=== PATIENT | female | born 1950 | race Caucasian/White ===

== ENCOUNTER 2019-08-22 15:37 | Emergency (ER) | payer MEDICARE, SELFPAY ==
--- NOTE | ~2019-08-22 | US_ITS ---
EXAMINATION: US right upper quadrant EXAM DATE: 08/22/2019 16:25 INDICATION: Right flank pain, right upper quadrant pain. TECHNIQUE: Multiple grayscale and Doppler images of the abdomen right upper quadrant were obtained (b y a technologist who performed the scan) and subsequently reviewed. Comparison is made to prior exami nation from 02/21/2019. FINDINGS: The pancreatic head and body are normal in appearance. The pancreatic tail is not visualized. There is echogenic liver parenchyma, hepatic steatosis. There are no focal liver lesions identified. Th ere is no evidence of intrahepatic biliary duct dilation. Portal venous flow was seen in the hepatop edal, normal direction and has normal Doppler waveform. No right-sided hydronephrosis. Common bile duct measures 5 mm, which is normal. The gallbladder wall is normal in thickness, with ex pected amount of distention. No sonographic evidence of pericholecystic fluid. There is no cholelit hiases. Technologist performing exam reports patient did not demonstrate sonographic Mccarthy's sign. Please note that this sign is less reliable in patients who have received pain medication. IMPRESSION: 1. Hepatic steatosis. 2. No right hydronephrosis. Reviewed, dictated and finalized at location A.
--- NOTE | ~2019-08-22 | CT_ITS ---
EXAMINATION: CT abdomen pelvis wo con EXAM DATE: 08/22/2019 18:14 INDICATION: Right flank pain. TECHNIQUE: Spiral CT of the abdomen and pelvis was performed without contrast. Axial, coronal and sag ittal images were reviewed. The dose-length product (DLP) for this examination was 1040.36 mGy-cm. The exposure was tailored according to patient size (auto mA exposure control), and iterative reconst ruction (ASIR) was used as additional dose reduction technique. There is no prior study for comparis on. FINDINGS: There are 4 right-sided calyceal stones largest measuring 4 mm. No ureteral stones or obstr uctive nephropathy. The uterus is unremarkable. The bladder is unremarkable. The liver, spleen, a drenal glands and pancreas are unremarkable. Gallbladder is unremarkable. No biliary obstruction. There is no retroperitoneal or pelvic lymphadenopathy. There is mild scattered arteriosclerotic dis ease. The appendix is normal. The stomach and small bowel are unremarkable. There is expected amount of c olonic stool. No free intraperitoneal gas. The heart is normal in size. There are no pericardial or pleural effusions. The lung bases are unremarkable. There are no osteoblastic or osteolytic les ions identified. Small umbilical fat-containing hernia. IMPRESSION: 1. Right nephrolithiasis. No obstructive nephropathy. 2. Small umbilical hernia. Reviewed, dictated and finalized at location A.
--- NOTE | 2019-08-22 16:03 | ED.BACK ---
HPI - Back Pain/Injury General Chief Complaint: Abdominal Pain Stated Complaint: R FLANK PAIN X4D Time Seen by Provider: 08/22/19 15:55 Source: patient Mode of arrival: ambulatory Limitations: no limitations History of Present Illness HPI Narrative: Pt is a 68 y/o female who presents to the ED with c/o rt sided back pain that started 4 days ago. Her back pain is aggravated with movement. She states that her pain feels similar to when she had a kidney stone in the past. Pt reports associated RUQ pain, epigastric pain, and nausea. She notes that she ate some toast at 1230PM. Pt denies fever, vomiting, or hematuria. She took Naproxen with no relief. MD elicited complaint: back pain Pertinent past history: kidney stones Onset (ago): day(s) (4) Location: right flank Exacerbating factors: movement Relieving factors: none Associated symptoms: abdominal pain (RUQ and epigastric) and other (nausea) Treatments prior to arrival: other (Naproxen) Related Data Home Medications Medication Instructions Recorded Confirmed amitriptyline-chlordiazepoxide 1 - 2 tablet PO .QHS tablet 04/08/19 12.5 mg-5 mg tablet atenolol 50 mg tablet 50 mg PO DAILY 04/08/19 fluticasone propionate 50 1 - 2 spray NASAL DAILY PRN ml 04/08/19 mcg/actuation nasal spray,suspension ketoconazole 2 % topical cream 1 applic TOPICAL BID 04/08/19 levothyroxine 75 mcg tablet 75 mcg PO DAILY 04/08/19 metformin 500 mg tablet,extended 500 mg PO BID 04/08/19 release 24 hr nystatin 100,000 unit/gram topical 1 applic TOPICAL BID 04/08/19 powder omeprazole 20 mg capsule,delayed 20 mg PO DAILY 04/08/19 release triamcinolone acetonide 0.1 % 1 applic TOPICAL QID 04/08/19 topical cream Allergies Allergy/AdvReac Type Severity Reaction Status Date / Time bacitracin Allergy Unknown rash Verified 08/22/19 16:52 codeine Allergy Unknown Dizziness Verified 08/22/19 16:52 doxycycline Allergy Unknown Nausea Verified 08/22/19 16:52 escitalopram Allergy Unknown headaches, Verified 08/22/19 16:52 dizziness ezetimibe Allergy Unknown hot flashes Verified 08/22/19 16:52 fluoxetine Allergy Unknown Anxious Verified 08/22/19 16:52 guaifenesin [Entex T] Allergy Unknown Anxious Verified 08/22/19 16:52 mirtazapine Allergy Unknown Pt does Verified 08/22/19 16:52 not remember reaction polymyxin B Allergy Unknown rash Verified 08/22/19 16:52 pseudoephedrine [Entex T] Allergy Unknown Anxious Verified 08/22/19 16:52 simvastatin Allergy Unknown myalgia Verified 04/08/19 14:39 suvorexant [Belsomra] Allergy Unknown myalgias Verified 04/08/19 14:39 hydrocodone AdvReac Mild GI UPSET- Unverified 04/08/19 14:39 VICODIN Review of Systems Review of Systems: All systems reviewed & are unremarkable except as noted in HPI and below Constitutional: Constitutional: Denies fever(s) Gastrointestinal: Gastrointestinal: Reports abdominal pain (epigastric and RUQ), Reports nausea and Denies vomiting Genitourinary: Genitourinary: Denies hematuria Musculoskeletal: Musculoskeletal: Reports back pain (rt) PMFSH Past Medical History Medical History (Updated 08/23/19 @ 00:00 by Shelby Harp) Arthritis Broken shoulder Chronic fatigue syndrome Chronic tension-type headache, not intractable Disorder of carbohydrate metabolism, unspecified Dysplastic nevus Essential (primary) hypertension Fibromyalgia Irritable bowel syndrome without diarrhea Kidney stones Major depressive disorder, recurrent, moderate Mixed hyperlipidemia MVP (mitral valve prolapse) Peripheral neuropathy TTS (tarsal tunnel syndrome) Type 2 diabetes mellitus with complication, without long-term current use of insulin Surgical History Surgical History (Updated 08/22/19 @ 16:12 by Yaritza Cordero) H/O arthroscopy of shoulder (~1994) H/O arthroscopy of shoulder (~1998) H/O section (~1988) H/O tubal ligation History of bilateral tubal ligation History of bladder surgery (~1994) H
[2019-08-22 16:05] VITALS: BP 171/40; PULSE 66; RESP 18; TEMP 37; O2SAT 97
[2019-08-22 16:51] LABS: Basophils Percent Auto 0.4 % (0.2-1.2); Eosinophils Absolute Auto 0.1 K/mm3 (0-0.3); Eosinophils Percent Auto 1.3 % (0-4.4); Immature Granulocyte Absolute 0.03 K/mm3 (0.00-0.031); Immature Granulocyte Percent A 0.7 % (0-0.5); Lymphocytes Absolute Auto 1.57 K/mm3 (0.9-3.2); Lymphocytes Percent Auto 34.5 % (18.3-44.2); Mean Corpuscular HGB Conc 31.8 g/dl (32-36); Mean Corpuscular Hemoglobin 28.6 pg (26-34); Mean Platelet Volume 11.9 fl (7.4-10.4); Monocytes Absolute Auto 0.6 K/mm3 (0.1-0.6); Monocytes Percent Auto 14.1 % (2.6-8.5); Neutrophils Absolute Auto 2.2 K/mm3 (1.3-6.7); Platelet Count Result 212 k/mm3 (150-375); Red Blood Count 4.89 M/mm3 (4.2-5.4); Red Cell Distribution Width 14.2 % (11.5-14.5); White Blood Count 4.6 K/mm3 (4.5-10.0)
[2019-08-22 16:57] LABS: Add Urine Microscopic? YES; Appearance Urine Clear (Clear); Bilirubin Urine Negative (Negative); Blood Urine Negative (Negative); Color Urine Straw (Yellow); Glucose Urine UA Negative (Negative); Ketones Urine Negative (Negative); Leukocyte Esterase Ur Trace LEU/UL (Negative); Nitrate Urine Negative (Negative); Protein Urine Negative (Negative); RBC Urine 0-2 /hpf (0-2); Squamous Epithelial Cell Urine Occasional /hpf (Few); Urobilinogen Urine Negative mg/dL (<2.0); WBC Urine 0-3 /hpf
[2019-08-22 17:06] LABS: Alanine Aminotransferase 43 U/L (4-35); Albumin Level 4.4 g/dL (3.5-5.1); Alkaline Phosphatase 133 U/L (38-126); Aspartate Amino Transferase 43 U/L (14-36); Bilirubin,Total 0.3 mg/dL (0.2-1.3); Blood Urea Nitrogen 14 mg/dL (7-17); Calcium 8.9 mg/dL (8.4-10.2); Carbon Dioxide 29 mmol/L (22-30); Chloride 102 mmol/L (98-107); Estimated CRCL calculation 67 ml/min; Estimated Glomerular Filt Rate > 60; Glucose 97 mg/dL (65-105); Lipase 44 U/L (23-300); Potassium 4.3 mmol/L (3.4-5.0); Sodium 137 mmol/L (137-145)
[2019-08-22] MEDS: DICYCLOMINE HCL INJ 20 MG/2 ML VIAL IM (17:23)
[2019-08-22 17:30] VITALS: BP 136/64; PULSE 89; RESP 16; O2SAT 97
== END 2019-08-22 19:45 | disposition home or self-care (01) ==
PROVIDERS: Emergency Provider Emergency Medicine; PCP Family Medicine
DX: R10.11 Right upper quadrant pain (principal); E11.42 Type 2 diabetes mellitus with diabetic polyneuropathy; M19.90 Unspecified osteoarthritis, unspecified site; R53.82 Chronic fatigue, unspecified; I10 Essential (primary) hypertension; M79.7 Fibromyalgia; K58.9 Irritable bowel syndrome, unspecified; Z87.442 Personal history of urinary calculi; E78.2 Mixed hyperlipidemia; I34.1 Nonrheumatic mitral (valve) prolapse; K76.0 Fatty (change of) liver, not elsewhere classified; Z79.4 Long term (current) use of insulin
CPT/HCPCS: 36415; 74176; 76705; 80053; 81001; 83690; 85025; 96372; 99284; J0500; J1885

== ENCOUNTER 2020-01-02 15:38 | Outpatient (CLI) | payer MEDICARE, SELFPAY ==
--- NOTE | ~2020-01-02 | MM_ITS ---
EXAMINATION: MM screening mary BI w maryam HISTORY: Screening TECHNIQUE: Craniocaudal and mediolateral oblique 3-D tomosynthesis images were obtained and synthetic 2-D images were generated. CAD analysis was submitted and interpreted. COMPARISON: Comparison to multiple prior studies sequentially, with oldest reviewed study dated 10/14. BREAST PARENCHYMAL COMPOSITION: There are scattered areas of fibroglandular density. FINDINGS: There is no evidence of suspicious mass, calcification, or architectural distortion to sugg est malignancy in either breast. There has been no suspicious interval change. IMPRESSION: 1. No mammographic evidence of malignancy. 2. Recommend routine screening mammography in one year. BI-RADS Category 1: Negative Reviewed, dictated and finalized at location A.
== END 2020-01-02 15:39 | disposition home or self-care (01) ==
LOC: ANHIMG 15:42
PROVIDERS: PCP Family Medicine; Visit Provider Family Medicine
DX: Z12.31 Encounter for screening mammogram for malignant neoplasm of breast (principal)
CPT/HCPCS: 77063; 77067

== ENCOUNTER 2020-03-14 03:46 | Outpatient (CLI) | payer MEDICARE, SELFPAY ==
[2020-03-14 19:05] LABS: SARS-CoV-2 RNA PCR Negative
== END 2020-03-14 03:47 | disposition home or self-care (01) ==
LOC: ANHCOVIDDT 03:46
PROVIDERS: PCP Family Medicine; Visit Provider Internal Medicine Critical Care Medicine
DX: Z01.812 Encounter for preprocedural laboratory examination (principal); Z20.828 Contact with and (suspected) exposure to other viral communicable diseases
CPT/HCPCS: 87635; C9803; U0003

== ENCOUNTER 2020-03-16 14:36 | Outpatient (CLI) | payer MEDICARE, SELFPAY ==
--- NOTE | 2020-04-11 10:58 | WPDSLEEPSTUD ---
Sleep Study Date of Study: 03/16/20 Ordering Provider: Gay Henson MD Interpreting Physician: Nicole Quinn MD Sleep Study Type: Split Polysomnogram Height: 1.57 m Weight: 90.718 kg Body Mass Index: 36.6 Neck Circumference: 40.64 cm [place]: 3 Reason for Sleep Study Fatigue, has a diagnosis of CONSTANCE but has not been able to have a CPAP titration. Her initial study was 04/19/2017 with an AHI of 8, looud snoring and multiple desaturations. Sleep History Jeanette Modi is a 69 yo female who has a history of obstructive sleep apnea, and has not been able to have a CPAP titration until now. She has headaches, hypertension, diabtese and depression. She had a sleep study in 2017 however did not have a CPAP titration afterwards. she occasionally snores but says it is never allowed enough that others complain about it. She frequently awakens at night with heartburn, belching for coughing. She does not awaken from sleep feeling short of breath. She constantly has trouble sleeping if she has a cold. She does not wake up gasping for breath at night or have breathing problems at night observed by others. She constantly sweats excessively at night and occasionally notices her heart pounding or beating irregularly at night. She never falls asleep in the day, never falls asleep involuntarily or while driving. She does not have loss of muscle tone was strong emotion. She does not have daytime difficulties due to excessive sleepiness. She never feels paralyzed on waking or falling asleep. She constantly has vivid dreamlike scenes upon awakening or falling asleep. She never is afraid to go to sleep. She never has nightmares. She constantly remembers her dreams. She does not have racing thoughts. She denies feelings of sadness and depression. She occasionally has anxiety. She never has muscular tension. She does not notice part of her body jerking. She does not kick at night, have crawling and aching feelings in the legs at night or have leg pain at night. She denies morning jaw pain. She constantly grinds her teeth during sleep. She frequently is bothered by pain during the day, is awakened by pain at night and wakes up feeling stiff in the morning was sore achy muscles and pain in the neck and spine joints. She has fatigue and headaches. Her normal bedtime is midnight taking 10 minutes to 20 minutes to fall asleep. She typically wakes twice at night to go to the bathroom. When she wakes during the night she stays awake for 1 hour. She wakes in the morning at 10:00 a.m.. Weekend schedule is the same. She is too tired and fatigued to enjoy her normal social activities. She does take naps in the afternoon. A short nap is not refreshing. She feels better in the afternoon compared to mornings. Habits: She never smoked tobacco. No mention of caffeine, alcohol or recreational drugs. [facility] Past Medical History Medical History (Updated 04/11/20 @ 11:50 by Nicole Quinn MD) Arthritis Broken shoulder Chronic fatigue syndrome Chronic tension-type headache, not intractable Disorder of carbohydrate metabolism, unspecified Dysplastic nevus Essential (primary) hypertension Fibromyalgia Irritable bowel syndrome without diarrhea Kidney stones Major depressive disorder, recurrent, moderate Mixed hyperlipidemia MVP (mitral valve prolapse) Peripheral neuropathy TTS (tarsal tunnel syndrome) Type 2 diabetes mellitus with complication, without long-term current use of insulin Surgical History Surgical History H/O arthroscopy of shoulder (~1994) H/O arthroscopy of shoulder (~1998) H/O section (~1988) H/O tubal ligation History of bilateral tubal ligation History of bladder surgery (~1994) History of bladder suspension procedure History of foot surgery (~2000) History of sinus surgery (~1996) Family History Family History Mother
[2020-04-11 12:28] VITALS: BMI 36.6
== END 2020-03-16 14:37 | disposition home or self-care (01) ==
LOC: ANHCSM 04-24 14:36
PROVIDERS: PCP Family Medicine; Visit Provider Family Medicine
DX: G47.33 Obstructive sleep apnea (adult) (pediatric) (principal)
CPT/HCPCS: 95811

== ENCOUNTER 2020-08-07 14:36 | Outpatient (CLI) | payer MEDICARE, SELFPAY ==
--- NOTE | ~2020-08-07 | MR_ITS ---
EXAMINATION: MR brain/brain stem wo/w con EXAM DATE: 08/07/2020 16:04 INDICATION: R51.9 - Headache, unspecified. TECHNIQUE: Magnetic resonance imaging (MRI) of the brain/brain stem obtained without contrast. Sagit ann T1, axial diffusion, gradient echo (T2*), T1, T2, FLAIR sequences obtained. Patient was then inj ected with 18 cc intravenous Multihance contrast. Axial and coronal postcontrast T1 weighted sequence s obtained. There is no prior study for comparison. FINDINGS: There are no areas of restricted diffusion to suggest acute infarction. There is no acute hemorrhage seen on the T2*, a hemosiderin sensitive sequence. There is mild microangiopathy. Mild eth moid mucoperiosteal thickening. No intraparenchymal brain mass. The ventricles are normal in size. T here are no extra-axial collections. Flow voids are seen in the cerebral arteries on the T2-weighted sequences consistent with their expected patency. The orbits are unremarkable. Soft tissue is unre markable. There are no areas of abnormal enhancement on the postcontrast images. IMPRESSION: 1. No acute intracranial findings. 2. Mild microangiopathy. Reviewed, dictated and finalized at location A.
[2020-08-07 15:41] LABS: Estimated Glomerular Filt Rate 55
== END 2020-08-07 14:37 | disposition home or self-care (01) ==
PROVIDERS: PCP Family Medicine; Visit Provider Physician Assistant
DX: R51.9 Headache, unspecified (principal); I67.9 Cerebrovascular disease, unspecified
CPT/HCPCS: 70553; A9577

== ENCOUNTER 2020-09-24 13:18 | Outpatient (CLI) | payer MEDICARE, SELFPAY ==
--- NOTE | ~2020-09-24 | XR_ITS ---
EXAMINATION: XR shoulder RT min 2V, XR humerus RT DATE: 09/24/2020 13:42 INDICATION: Right shoulder and upper arm pain and limited range of motion TECHNIQUE: 1. AP internally and externally rotated, AP oblique externally rotated and transscapular Y views of t he affected shoulder were obtained. 2. AP and lateral views of the right upper arm were obtained. COMPARISON: None FINDINGS: Normal alignment. No fracture. Mild acromioclavicular osteoarthritis. Right glenohumeral and acromio clavicular joint spaces are relatively preserved. Tiny olecranon spur. Soft tissues are unremarkable. Visualized portions of the right lung are clear. IMPRESSION: Mild acromioclavicular osteoarthritis. No acute osseous abnormality at the right shoulder or upper ar m. Reviewed, dictated and finalized at location A. IMPRESSION: Mild acromioclavicular osteoarthritis. No acute osseous abnormality at the [place] shoulder or upper arm.
== END 2020-09-24 13:19 | disposition home or self-care (01) ==
PROVIDERS: PCP Family Medicine; Visit Provider Physician Assistant Medical
DX: M25.511 Pain in right shoulder (principal); M89.8X2 Other specified disorders of bone, upper arm; M19.011 Primary osteoarthritis, right shoulder
CPT/HCPCS: 73030; 73060

== ENCOUNTER 2020-11-27 00:30 | Day surgery (SDC) | payer MEDICARE, SELFPAY ==
[2020-11-16 15:19] VITALS: BMI 37.9
[2020-11-27 06:49] VITALS: BP 151/77; PULSE 62; RESP 18; TEMP 36.1; O2SAT 95
[2020-11-27] MEDS: LACTATED RINGERS 1,000 ML 150 ML IV CONT (06:58)
[2020-11-27 07:00] LABS: Glucose Point of Care 138 mg/dl (65-105)
--- NOTE | 2020-11-27 07:22 | WPDANESEPPF ---
Anes - Initial Pre Proc Eval Procedure: Operation Date: 11/27/20 08:00 Proposed Procedures p Screening Colonoscopy - Rodríguez Lyles MD Date/Time: 11/27/20 07:22 Surgeon: Rodríguez Lyles MD Pre Op Diagnosis: neoplasm screening Patient Data Age: 70 Gender: F Height: 1.55 m Weight: 88.3 kg Last Vital Signs Temp 97.0 F L 11/27/20 06:49 Pulse 62 11/27/20 06:49 Resp 18 11/27/20 06:49 BP 151/77 H 11/27/20 06:49 Pulse Ox 95 11/27/20 06:49 Allergies Allergy/AdvReac Type Severity Reaction Status Date / Time simvastatin Allergy Intermediate myalgia Verified 11/27/20 06:47 suvorexant [Belsomra] Allergy Intermediate myalgias Verified 11/27/20 06:47 bacitracin Allergy Mild rash Verified 11/27/20 06:47 mirtazapine Allergy Unknown Pt does Verified 11/27/20 06:47 not remember reaction codeine AdvReac Mild Dizziness Verified 11/27/20 06:47 doxycycline AdvReac Mild Nausea Verified 11/27/20 06:47 escitalopram AdvReac Mild headaches, Verified 11/27/20 06:47 dizziness ezetimibe AdvReac Mild hot flashes Verified 11/27/20 06:47 fluoxetine AdvReac Mild Anxious Verified 11/27/20 06:47 guaifenesin [Entex T] AdvReac Mild Anxious Verified 11/27/20 06:47 hydrocodone AdvReac Mild GI UPSET- Verified 11/27/20 06:47 VICODIN polymyxin B AdvReac Mild rash Verified 11/27/20 06:47 pseudoephedrine [Entex T] AdvReac Mild Anxious Verified 11/27/20 06:47 Home Medications Medication Instructions Recorded Confirmed Type metformin 500 mg tablet,extended 500 mg PO BID #180 tablet 10/12/19 11/16/20 Rx release 24 hr triamterene 37.5 0.5 tablet PO QAM #90 tablet 04/09/20 11/16/20 Rx mg-hydrochlorothiazide 25 mg tablet zolpidem 10 mg tablet 10 mg PO .QHS #90 tablet 06/21/20 11/16/20 Rx atenolol 50 mg PO HS 11/16/20 11/16/20 History cholecalciferol (vitamin D3) 2,000 unit PO DAILY 11/16/20 11/16/20 History [Vitamin D3] gabapentin 1,200 mg PO BID 11/16/20 11/16/20 History levothyroxine 75 mcg PO HS 11/16/20 11/16/20 History ervidyjxgdlf-mqz-parg-FA-vit K 1 tablet PO DAILY 11/16/20 11/16/20 History [Adults Multivitamin] paroxetine HCl 30 mg PO DAILY 11/16/20 11/16/20 History rosuvastatin [Crestor] 10 mg PO HS 11/16/20 11/16/20 History Laboratory Tests 11/27/20 06:56 POC Capillary Glucose 138 mg/dl H mg/dl (65-105) Patient hx anesthesia problems: none Family hx anesthesia problems: none PMFSH Past Medical History Medical History Arthritis Broken shoulder Chronic fatigue syndrome Chronic tension-type headache, not intractable Disorder of carbohydrate metabolism, unspecified Dysplastic nevus Essential (primary) hypertension Fibromyalgia Irritable bowel syndrome without diarrhea Kidney stones Major depressive disorder, recurrent, moderate Mixed hyperlipidemia MVP (mitral valve prolapse) Peripheral neuropathy TTS (tarsal tunnel syndrome) Type 2 diabetes mellitus with complication, without long-term current use of insulin Surgical History Surgical History H/O arthroscopy of shoulder (~1994) H/O arthroscopy of shoulder (~1998) H/O section (~1988) H/O tubal ligation History of bilateral tubal ligation History of bladder surgery (~1994) History of bladder suspension procedure History of foot surgery (~2000) History of sinus surgery (~1996) Family History Family History Mother Family history of suicide Patient's mother is Father Family history of throat cancer Patient's father is , Onset Age: 58 Sibling Family history of coronary artery disease Other Family history of alcoholism Family history of cardiovascular disease Family history of elevated blood lipids Family history of mental disorder No family history of allergies Social History So
--- NOTE | 2020-11-27 08:05 | WPDGICN ---
Assessment and Plan Assessment and plan (1) Encounter for screening colonoscopy: Code(s): Z12.11 - Encounter for screening for malignant neoplasm of colon Status: Acute Assessment and Plan: Patient presents today for screening colonoscopy. Further recommendations will be given after endoscopy. GI Consult Note Consult date/time: 11/27/20 08:05 HPI: Jeanette Modi is a 70 year old female presents for neoplasia screening. Patient states that her current weight appetite bowel movements are normal. She denies abdominal pain. She has had no bleeding. Her family history is noncontributory. Patient presents today for screening follow-up colonoscopy. Her last exam was in 2004. She reports no recent GI issues. She has had no bleeding pain or change in bowel habits. Review of Systems Review of Systems: All systems reviewed & are unremarkable except as noted in HPI and below PMFSH Past Medical History Medical History (Updated 11/27/20 @ 08:06 by Rodríguez Lyles MD) Arthritis Broken shoulder Chronic fatigue syndrome Chronic tension-type headache, not intractable Disorder of carbohydrate metabolism, unspecified Dysplastic nevus Essential (primary) hypertension Fibromyalgia Irritable bowel syndrome without diarrhea Kidney stones Major depressive disorder, recurrent, moderate Mixed hyperlipidemia MVP (mitral valve prolapse) Peripheral neuropathy TTS (tarsal tunnel syndrome) Type 2 diabetes mellitus with complication, without long-term current use of insulin Surgical History Surgical History (Reviewed 11/02/20 @ 14:27 by Olga Davalos [facility]) H/O arthroscopy of shoulder (~1994) H/O arthroscopy of shoulder (~1998) H/O section (~1988) H/O tubal ligation History of bilateral tubal ligation History of bladder surgery (~1994) History of bladder suspension procedure History of foot surgery (~2000) History of sinus surgery (~1996) Family History Family History (Reviewed 11/02/20 @ 14:27 by Olga Davalos [facility]) Mother Family history of suicide Patient's mother is Father Family history of throat cancer Patient's father is , Onset Age: 58 Sibling Family history of coronary artery disease Other Family history of alcoholism Family history of cardiovascular disease Family history of elevated blood lipids Family history of mental disorder No family history of allergies Social History Social History (Reviewed 11/02/20 @ 14:27 by Olga Davalos [facility]) Smoking status: Never smoker Alcohol intake: current Substance use: never Substance use type: does not use Living arrangements: with family Gender identity (if verbalized by the patient): Female Spiritual care concerns: No Meds Home Medications and Allergies Home Medications Medication Instructions Recorded Confirmed Type metformin 500 mg tablet,extended 500 mg PO BID #180 tablet 10/12/19 11/16/20 Rx release 24 hr triamterene 37.5 0.5 tablet PO QAM #90 tablet 04/09/20 11/16/20 Rx mg-hydrochlorothiazide 25 mg tablet zolpidem 10 mg tablet 10 mg PO .QHS #90 tablet 06/21/20 11/16/20 Rx atenolol 50 mg PO HS 11/16/20 11/16/20 History cholecalciferol (vitamin D3) 2,000 unit PO DAILY 11/16/20 11/16/20 History [Vitamin D3] gabapentin 1,200 mg PO BID 11/16/20 11/16/20 History levothyroxine 75 mcg PO HS 11/16/20 11/16/20 History izkjdsargfcz-eku-sbus-FA-vit K 1 tablet PO DAILY 11/16/20 11/16/20 History [Adults Multivitamin] paroxetine HCl 30 mg PO DAILY 11/16/20 11/16/20 History rosuvastatin [Crestor] 10 mg PO HS 11/16/20 11/16/20 History Allergies Allergy/AdvReac Type Severity Reaction Status Date / Time simvastatin Allergy Intermediate myalgia Verified 11/27/20 06:47 suvorexant [Belsomra] Allergy Intermediate myalgias Verified 11/27/20 06:47 bacitracin Allergy Mild rash Verified 11/27/20 06:47 mirtazapine Allergy Unknown Pt does Verified 11/27/20 06:47
[2020-11-27] MEDS: SIMETHICONE ORAL SUSPENSION 20 MG/0.3 ML 30 ML BOTTLE 0.6 ML IRRIGATION (08:17)
[2020-11-27 08:28] VITALS: BP 124/64; PULSE 68; RESP 21; O2SAT 97
[2020-11-27 08:38] VITALS: BP 115/62; PULSE 58; RESP 18; O2SAT 96
[2020-11-27 08:48] VITALS: BP 130/69; PULSE 63; RESP 20; O2SAT 97
== END 2020-11-27 09:02 | disposition home or self-care (01) ==
PROVIDERS: PCP Family Medicine; Visit Provider Internal Medicine Gastroenterology
PROC: 0DJD8ZZ Inspection of Lower Intestinal Tract, Via Natural or Artificial Opening Endoscopic (ICD-10-PCS; CPT 45378; principal; 2020-11-27 08:00)
DX: Z12.11 Encounter for screening for malignant neoplasm of colon (principal); K64.8 Other hemorrhoids; Z79.84 Long term (current) use of oral hypoglycemic drugs; E03.9 Hypothyroidism, unspecified; M19.90 Unspecified osteoarthritis, unspecified site; I10 Essential (primary) hypertension; M79.7 Fibromyalgia; F32.9 Major depressive disorder, single episode, unspecified; E78.5 Hyperlipidemia, unspecified; I34.1 Nonrheumatic mitral (valve) prolapse; E11.40 Type 2 diabetes mellitus with diabetic neuropathy, unspecified; E66.9 Obesity, unspecified; Z68.36 Body mass index [BMI] 36.0-36.9, adult; K58.9 Irritable bowel syndrome, unspecified
CPT/HCPCS: G0121; 82948; J2704; J7120

== ENCOUNTER 2021-02-05 14:44 | Outpatient (CLI) | payer MEDICARE, SELFPAY ==
--- NOTE | ~2021-02-05 | MM_ITS ---
EXAMINATION: MM screening mary BI w maryam HISTORY: Screening TECHNIQUE: Craniocaudal and mediolateral oblique 3-D tomosynthesis images were obtained and synthetic 2-D images were generated. CAD analysis was submitted and interpreted. COMPARISON: Comparison to multiple prior studies sequentially, with oldest reviewed study dated 07/05. BREAST PARENCHYMAL COMPOSITION: Breast composed of scattered areas of fibroglandular density FINDINGS: There is no evidence of suspicious mass, calcification, or architectural distortion to sugg est malignancy in either breast. There has been no suspicious interval change. IMPRESSION: 1. No mammographic evidence of malignancy. 2. Recommend routine screening mammography in one year. BI-RADS Category 1: Negative Reviewed, dictated and finalized at location A.
== END 2021-02-05 14:45 | disposition home or self-care (01) ==
LOC: ANHIMG 14:47
PROVIDERS: PCP Family Medicine; Visit Provider Family Medicine
DX: Z12.31 Encounter for screening mammogram for malignant neoplasm of breast (principal)
CPT/HCPCS: 77063; 77067

== ENCOUNTER 2022-05-13 14:59 | Outpatient (CLI) | payer MEDICARE, SELFPAY ==
--- NOTE | ~2022-05-13 | MM_ITS ---
EXAMINATION: MM screening mary BI w maryam HISTORY: Screening TECHNIQUE: Craniocaudal and mediolateral oblique 3-D tomosynthesis images were obtained and synthetic 2-D images were generated. CAD analysis was submitted and interpreted. COMPARISON: Comparison to multiple prior studies sequentially, with oldest reviewed study dated 07/05. BREAST PARENCHYMAL COMPOSITION: There are scattered areas of fibroglandular density. FINDINGS: There is no evidence of suspicious mass, calcification, or architectural distortion to sugg est malignancy in either breast. There has been no suspicious interval change. IMPRESSION: 1. No mammographic evidence of malignancy. 2. Recommend routine screening mammography in one year. BI-RADS Category 1: Negative Reviewed, dictated and finalized at location A. 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
== END 2022-05-13 15:00 | disposition home or self-care (01) ==
LOC: ANHIMG 15:00
PROVIDERS: PCP Family Medicine; Visit Provider Family Medicine
DX: Z12.31 Encounter for screening mammogram for malignant neoplasm of breast (principal)
CPT/HCPCS: 77063; 77067

== ENCOUNTER → 2022-05-28 09:10 | Outpatient (CLI) | payer MEDICARE, SELFPAY ==
--- NOTE | ~2022-05-28 | US_ITS ---
Abdominal Sonogram: Real-time sonographic imaging of the abdomen was performed. Clinical History: Right upper quadrant pain Findings: The liver appears echogenic, with no evidence of mass lesion or bile duct dilatation. Main portal vein demonstrates normal direction of flow. The spleen is normal in size without evidence of focal lesion. The gallbladder is well distended, and appears normal with no evidence of gallstone or wall thickening. The common bile duct measures 6 mm. The visualized pancreas, aorta, and IVC are un remarkable. The right kidney measures 10.8 cm in length and the left kidney measures 10.6 cm. There is no hydronephrosis or renal calculus. Impression: Diffuse fatty infiltration of the liver. Reviewed, dictated and finalized at location M. 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
== END ==
PROVIDERS: PCP Nurse Practitioner; Visit Provider Nurse Practitioner
DX: R10.11 Right upper quadrant pain (principal); K76.0 Fatty (change of) liver, not elsewhere classified
CPT/HCPCS: 76700

== ENCOUNTER 2022-07-08 09:19 | Outpatient (CLI) | payer MEDICARE, SELFPAY ==
--- NOTE | ~2022-07-08 | NM_ITS ---
EXAMINATION: NM hepatobiliary wo pharm DATE: 07/08/2022 12:08 INDICATION: Right upper quadrant abdominal pain. COMPARISON: Ultrasound 05/28/2022 TECHNIQUE: 5.2 mCi Tc-99m mebrofenin (Choletec) was administered intravenously. Scintigraphic images of the abdomen were obtained for one hour. Then, the patient drank 8 oz Ensure, and imaging was cont inued for 60 minutes. FINDINGS: There is normal clearance of radiotracer from the blood pool. There is homogeneous tracer u ptake by the liver. Activity progresses to the bowel and gallbladder. Gallbladder ejection fraction (GBEF) was 57%. Note that with this technique, normal GBEF >= 33%. IMPRESSION: 1. Normal hepatobiliary scintigraphy. Reviewed, dictated and finalized at location A. 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
== END 2022-07-08 09:20 | disposition home or self-care (01) ==
PROVIDERS: PCP Family Medicine; Visit Provider Nurse Practitioner Family
DX: R10.11 Right upper quadrant pain (principal)
CPT/HCPCS: 78226; A9537

== ENCOUNTER 2023-10-12 10:31 | Outpatient (CLI) | payer MEDICARE, SELFPAY ==
--- NOTE | ~2023-10-12 | XR_ITS ---
Right Knee Technique: AP, lateral, and sunrise views were obtained. Clinical History: Pain Findings: No fracture or dislocation is seen. Osseous alignment is anatomic. Mild tricompartmental de generative spurring present. Soft tissues are unremarkable. No joint effusion is seen. Impression: Mild tricompartmental degenerative spurring. Reviewed, dictated and finalized at location . Impression: Mild tricompartmental degenerative spurring.
== END 2023-10-12 10:32 ==
PROVIDERS: PCP Family Medicine; Visit Provider Nurse Practitioner
DX: M25.761 Osteophyte, right knee (principal)
CPT/HCPCS: 73562

== ENCOUNTER 2023-11-07 13:25 | Emergency (ER) | payer MEDICARE, SELFPAY ==
--- NOTE | ~2023-11-07 | XR_ITS ---
XR hand LT min 3V Ordering provider: Sheri Madrid PA-C History: . fall last night, bruising, swelling, lac to 5th finger . Comparison: None. FINDINGS: BONES: Fracture of the proximal shaft of the proximal phalanx of the fifth finger is noted. Fracture of the proximal metaphysis of the fifth metacarpal bone is also noted. No significant displacement. JOINT SPACES: Osteoarthritic changes of the first carpometacarpal joint. SOFT TISSUES: Soft tissue swelling over the area of the fifth metacarpal bone. IMPRESSION: Undisplaced fracture of the proximal metaphysis of the fifth metacarpal bone and proximal metaphysis of the proximal phalanx of the fifth finger. Reviewed, dictated and finalized at location A. IMPRESSION: Undisplaced fracture of the proximal metaphysis of the fifth metacarpal bone an d proximal metaphysis of the proximal phalanx of the fifth finger.
--- NOTE | ~2023-11-07 | CT_ITS ---
CT facial & cervical spine wo Ordering provider: Sheri Madrid PA-C History: . head injury . Comparison: None. Technique: Thin slice axial CT of the facial bones was performed without contrast. Coronal and sagit ann reformatted images were also obtained. Radiation reduction technique utilized. DLP is 470.57 mGy FINDINGS: PARANASAL SINUSES: Bilateral sphenoid and posterior right ethmoid sinus disease. Thickening of the wa ll of the sphenoid sinuses suggestive of chronic sinusitis. BONES: No facial fracture including no nasal bone fracture. ORBITS AND SUPERFICIAL SOFT TISSUES: The optic globes and orbits are normal. Scalp hematoma is seen i n the left frontal scalp extending anterior to the left orbit. zVISUALIZED MASTOIDS: Well aerated. LIMITED VISUALIZED BRAIN PARENCHYMA: Normal. IMPRESSION: No facial fracture. CT facial & cervical spine wo Ordering provider: Sheri Madrid PA-C History: . head injury . Comparison: None. Technique: CT of the cervical spine was performed without contrast. Sagittal and coronal reformatted images were also obtained and reviewed. FINDINGS: VERTEBRAE: No subluxation or acute fracture. The occipital condyles are intact. DISC SPACES: Mild narrowing of the level of C6-C7. Multilevel facet joint disease. Multilevel uncover tebral joint osteoarthritic changes. PARASPINOUS SOFT TISSUES: Normal. IMPRESSION: No acute osseous abnormality cervical spine. Reviewed, dictated and finalized at location A. IMPRESSION: No facial fracture. CT facial & cervical spine wo Ordering provider: Sheri Madrid PA-C History: . head injury . Comparison: None. Technique: CT of the cervical spine was performed without contrast. Sagittal a nd coronal reformatted images were also obtained and reviewed. FINDINGS: VERTEBRAE: No subluxation or acute fracture. The occipital condyles are intact. DISC SPACES: Mild narrowing of the level of C6-C7. Multilevel facet joint disea se. Multilevel uncovertebral joint osteoarthritic changes. PARASPINOUS SOFT TISSUES: Normal.
--- NOTE | ~2023-11-07 | CT_ITS ---
CT brain wo con Ordering provider: Sheri Mardid PA-C History: 73 years Female with . head injury . Comparison: None. Technique: CT of the head without contrast. Radiation reduction technique utilized. DLP is 529.67 mGy FINDINGS: BRAIN PARENCHYMA AND CSF SPACES: No midline shift, mass effect or hemorrhage. The brain parenchyma a nd CSF spaces are otherwise normal. VISUALIZED PARANASAL SINUSES: Bilateral sphenoid and posterior right ethmoid sinus disease.z MASTOIDS: Well aerated. BONES: The bones appear intact. SOFT TISSUES: Visualized nasopharynx is normal. Left frontal scalp hematoma is noted. IMPRESSION: No acute intracranial findings. Large left Frontal scalp hematoma. Bilateral sphenoid and right posterior ethmoid sinus disease. Reviewed, dictated and finalized at location A.
--- NOTE | ~2023-11-07 | XR_ITS ---
XR elbow LT min 3V Ordering provider: Sheri Madrid PA-C History: . fall last night, abrasion posterior elbow . Comparison: None. FINDINGS: BONES: No acute fracture or dislocation. JOINT SPACES: Normal. SOFT TISSUES: Normal. No definite joint effusion. IMPRESSION: No acute osseous abnormality left elbow. Reviewed, dictated and finalized at location A.
[2023-11-07 13:44] VITALS: BP 171/69; PULSE 60; RESP 16; TEMP 36.8; O2SAT 97
--- NOTE | 2023-11-07 14:34 | ED.HEATRA ---
HPI - Head Injury General Chief complaint: Head Injury Stated complaint: fall, hit head Time Seen by Provider: 11/07/23 14:07 Source: patient Mode of arrival: ambulatory Limitations: no limitations History of Present Illness HPI Narrative: This is a 73 year old female that presents to the ER after a head injury last night. Reports she missed a step and fell down a couple of steps. Reports hitting her head. She did not lose consciousness. Reports contusion to the scalp, face, and left elbow and hand pain. Denies vision changes, vomiting, numbness or weakness. Related Data Home Medications Medication Instructions Recorded Confirmed multivit with minerals-iron 18 1 tablet PO DAILY 11/16/20 09/09/23 mg-folic ac 400 mcg-vit K 25 mcg tablet (Adults Multivitamin) melatonin 10 mg capsule 10 mg PO QHS 12/04/22 09/09/23 Allergies Allergy/AdvReac Type Severity Reaction Status Date / Time simvastatin Allergy Intermediate myalgia Verified 09/09/23 12:58 suvorexant [Belsomra] Allergy Intermediate myalgias Verified 09/09/23 12:58 bacitracin Allergy Mild rash Verified 09/09/23 12:58 mirtazapine Allergy Unknown Pt does Verified 09/09/23 12:58 not remember reaction codeine AdvReac Mild Dizziness Verified 09/09/23 12:58 doxycycline AdvReac Mild Nausea Verified 09/09/23 12:58 escitalopram AdvReac Mild headaches, Verified 09/09/23 12:58 dizziness ezetimibe AdvReac Mild hot flashes Verified 09/09/23 12:58 fluoxetine AdvReac Mild Anxious Verified 09/09/23 12:58 guaifenesin [Entex T] AdvReac Mild Anxious Verified 09/09/23 12:58 hydrocodone AdvReac Mild GI UPSET- Verified 09/09/23 12:58 VICODIN polymyxin B AdvReac Mild rash Verified 09/09/23 12:58 pseudoephedrine [Entex T] AdvReac Mild Anxious Verified 09/09/23 12:58 Review of Systems Review of Systems: CONSTITUTIONAL: Denies fever EYES: Denies visual changes GASTROINTESTINAL: Denies vomiting MUSCULOSKELETAL: Reports joint pain and myalgia. Denies back pain NEUROLOGIC: Reports headache. Denies numbness, or weakness. All systems reviewed & are unremarkable except as noted in HPI and below PMFSH Past Medical History Medical History Arthritis Broken shoulder Chronic fatigue syndrome Chronic tension-type headache, not intractable Disorder of carbohydrate metabolism, unspecified Dysplastic nevus Essential (primary) hypertension Fibromyalgia Irritable bowel syndrome without diarrhea Kidney stones Major depressive disorder, recurrent, moderate Mixed hyperlipidemia MVP (mitral valve prolapse) Peripheral neuropathy Post menopausal problems Tongue abnormality (~09/2022) growth removed by TTS (tarsal tunnel syndrome) Type 2 diabetes mellitus with complication, without long-term current use of insulin Surgical History Surgical History H/O arthroscopy of shoulder (~1994) H/O arthroscopy of shoulder (~1998) H/O section (~1988) H/O tubal ligation History of bilateral tubal ligation History of bladder surgery (~1994) History of bladder suspension procedure History of foot surgery (~2000) History of sinus surgery (~1996) Family History Family History Mother Family history of suicide Patient's mother is Father Family history of throat cancer Patient's father is , Onset Age: 58 Sibling Family history of coronary artery disease Alcoholism Depression Heart disease COPD (chronic obstructive pulmonary disease) Grandparent Alcoholism Cancer Diabetes mellitus Hypertension COPD (chronic obstructive pulmonary disease) Grandparent Cancer Other Family history of alcoholism Family history of cardiovascular disease Family history of elevated blood lipids Family history of mental disorder No family history of allergies
[2023-11-07] MEDS: TETANUS,DIPHTHERIA,AC PERTUSSIS ADULT (0.5 ML) BOOSTRIX IM (16:47)
== END 2023-11-07 17:00 | disposition home or self-care (01) ==
PROVIDERS: Emergency Provider Physician Assistant; PCP Family Medicine
DX: S00.03XA Contusion of scalp, initial encounter (principal); S62.347A Nondisplaced fracture of base of fifth metacarpal bone, left hand, initial encounter for closed fracture; S62.647A Nondisplaced fracture of proximal phalanx of left little finger, initial encounter for closed fracture; Z23 Encounter for immunization; I10 Essential (primary) hypertension; I34.1 Nonrheumatic mitral (valve) prolapse; K58.9 Irritable bowel syndrome, unspecified; E78.2 Mixed hyperlipidemia; E11.42 Type 2 diabetes mellitus with diabetic polyneuropathy; G93.32 Myalgic encephalomyelitis/chronic fatigue syndrome; M79.7 Fibromyalgia; M19.90 Unspecified osteoarthritis, unspecified site; Z87.442 Personal history of urinary calculi; Z79.84 Long term (current) use of oral hypoglycemic drugs; Z79.899 Other long term (current) drug therapy; J32.3 Chronic sphenoidal sinusitis; J32.2 Chronic ethmoidal sinusitis; W10.9XXA Fall (on) (from) unspecified stairs and steps, initial encounter
CPT/HCPCS: 29125; 70450; 70486; 72125; 73080; 73130; 90471; 90715; 99284; A4565

== ENCOUNTER 2023-12-14 15:05 | Outpatient (CLI) | payer MEDICARE, SELFPAY ==
--- NOTE | ~2023-12-14 | XR_ITS ---
XR hand LT min 3V Ordering provider: Susan Senior MD History: . S62.647A - Nondisplaced fracture of proximal phalanx of l... . Comparison: November 07, 2023 FINDINGS: BONES: Fracture in the proximal metaphysis of the proximal phalanx and proximal metaphysis of the fif th metacarpal bone of the fifth finger. JOINT SPACES: Osteoarthritic changes of the first carpometacarpal joint. Narrowing of the distal inte rphalangeal joints suggestive of osteoarthritic changes. SOFT TISSUES: Unremarkable. IMPRESSION: Fracture in the proximal metaphysis of the fifth metacarpal bone and proximal phalanx of the fifth fi nger. Osteoarthritic changes in multiple joints. Reviewed, dictated and finalized at location A. IMPRESSION: Fracture in the proximal metaphysis of the fifth metacarpal bone and proximal p halanx of the fifth finger. Osteoarthritic changes in multiple joints.
== END 2023-12-14 15:06 | disposition home or self-care (01) ==
PROVIDERS: PCP Family Medicine; Visit Provider Plastic Surgery
DX: S62.647A Nondisplaced fracture of proximal phalanx of left little finger, initial encounter for closed fracture (principal); M19.042 Primary osteoarthritis, left hand; X58.XXXA Exposure to other specified factors, initial encounter
CPT/HCPCS: 73130

== ENCOUNTER 2024-01-11 14:15 | Outpatient (RCR) | payer MEDICARE, SELFPAY ==
--- NOTE | 2023-12-22 15:46 | OTOPEVAL1 ---
Assessment and note entered by DANO Melendez/Antonette, CHT OT Evaluation Report 12/22/23 Diagnosis Nondisplaced fx of proximal phalanx of left little finger Onset 11/07/23 Subjective Information Patient is left handed and is experiencing residual pain and stiffness following left small finger P1 fracture and metacarpal fracture. Difficulties with using a knife and gripping tasks , such as her steering wheel or opening a jar. She mowed the grass the other day with a push mower and was in a lot of pain afterwards. 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 Assessment OT Clinical Summary Patient referred to OT with left small finger P1 and metacarpal fracture. She is about 7 weeks out from her injury. Non-surgical. She presents with residual stiffness, weakness, and pain that limits gross gripping tasks. Skilled OT indicated to maximize functional use of her left, dominant hand . Treatments to include modalities, therapeutic exercise, and HEP instruction/progression. Plan of Care Interventions Therapeutic Exercise,Therapeutic Activities,Hot Pack/Cold Pack,Paraffin OT Services Indicated Yes Treatment Frequency and 1x/week for 5 visits Duration These treatments will address the objective and functional deficits as defined above. The patient will be advanced safely and appropriately in order for the patient to progress towards his/her prior level of function. Additional exercises will be introduced and as well as a comprehensive home exercise program upon discharge, if needed, ?to ensure carryover of functional gains achieved in the clinic. This treatment plan has been reviewed and agreement upon by the patient.
--- NOTE | 2023-12-22 15:47 | OPREHPOC ---
Outpatient Therapy Plan of Care This is a Multidisciplinary Plan of Care that may contain components documented by all disciplines (PT, OT, and ST.) OT Problem 1 OT Problem #1 Knowledge Deficit OT Goal 1 Goal 1. Patient to be independent with HEP. Target Visit 5 OT Problem 2 OT Problem #2 Impaired Range of Motion OT Goal 1 Goal Increase active ROM of the left small finger: 1. Be able to make a hook fist with less than 1 cm gap between the finger tip and DPC. 2. Be able to straighten the small finger with less that 5 degree extension lag at the PIP and DIP joints. Target Visit 5 OT Problem 3 OT Problem #3 Impaired Strength OT Goal 1 Goal 1. Patient to be able to complete left hand strengthening, including gross gripping, lumbrical strengthening, and finger adduction strengthening with yellow putty x5 minutes. Target Visit 5
--- NOTE | 2024-01-01 15:04 | PCOTNOTE ---
Patient did not show up for scheduled appointment this date. Called and left a message to reschedule.
--- NOTE | 2024-01-11 14:57 | OTOPDC ---
Assessment and note entered by Rafael Ramirez, OTR/L, CHT OT Discharge Summary 01/11/24 Diagnosis Nondisplaced fx of proximal phalanx of left little finger Onset 11/07/23 Subjective Information Patient reports she would like to wrap up therapy early due to having a hard time leaving work early . She reports she has made good progress in the last 3 weeks since starting therapy. She reports she is experiencing less pain and is able to use her hand for more tasks. Noting improved ability to chop fruits and veggies. Improved ability to open jars. 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 Left small finger ROM measurements: - MCP flexion improved from 80 to 85 degrees - MCP extension is WNL - PIP flexion improved from 80 to 90 degrees - PIP extension improved from -10 to -5 degrees - DIP flexion improved from 50 to 75 degrees - DIP extension improved from -20 to -15 degrees (L) purifying plant operator strength measuring 31 lbs. (R) purifying plant operator strength measuring 30 lbs. Reported Pain Level Pain Score 3: Self Report Assessment OT Clinical Summary Patient has attended 3 OT sessions following left hand 5th metacarpal and 5th P1 fracture. She has progress with therapy very well. She presents today stating that she would like today's session to be her last due to work. We reviewed her HEP ( ROM and strengthening) and she completes with excellent understanding. ROM has returned to functional limits. D/C OT with patient independent with HEP. Plan of Care OT Services Indicated No
== END 2024-01-11 15:50 | disposition home or self-care (01) ==
LOC: ANHGOSHOT 14:15
PROVIDERS: PCP Family Medicine; Visit Provider Plastic Surgery
DX: S62.647D Nondisplaced fracture of proximal phalanx of left little finger, subsequent encounter for fracture with routine healing (principal)
CPT/HCPCS: 97018; 97110; 97165

== ENCOUNTER 2024-01-13 15:37 | Outpatient (CLI) | payer MEDICARE, SELFPAY ==
[2024-01-13 19:46] LABS: Influenza A QL RT-PCR Negative (Negative); Influenza B QL RT-PCR Negative (Negative); RSV RNA, RT-PCR Negative (Negative); SARS-CoV-2 RNA PCR Negative (Negative)
== END 2024-01-13 15:38 | disposition home or self-care (01) ==
LOC: ANHGOSHLAB 15:39
PROVIDERS: PCP Family Medicine; Visit Provider Nurse Practitioner
DX: R05.9 Cough, unspecified (principal); R50.9 Fever, unspecified; Z20.822 Contact with and (suspected) exposure to COVID-19
CPT/HCPCS: 87637

== ENCOUNTER 2024-01-14 14:40 | Outpatient (CLI) | payer MEDICARE, SELFPAY ==
--- NOTE | ~2024-01-14 | XR_ITS ---
EXAMINATION: XR chest 2V Exam Date/Time: 01/14/2024 14:44 CDT HISTORY: R05.9 - Cough, unspecified Comparison: 05/12/2007. RESULT: Lines, tubes, and devices: None. Lungs and pleura: Clear. Cardiomediastinal silhouette: Stable. Other: No acute osseous or upper abdominal finding. IMPRESSION: No acute cardiopulmonary process. Reviewed, dictated and finalized at location K.
== END 2024-01-14 14:41 ==
PROVIDERS: PCP Family Medicine; Visit Provider Nurse Practitioner
DX: R05.9 Cough, unspecified (principal)
CPT/HCPCS: 71046

== ENCOUNTER 2024-05-21 10:28 | Outpatient (CLI) | payer MEDICARE, SELFPAY ==
--- NOTE | ~2024-05-21 | MM_ITS ---
EXAMINATION: MM screening [facility] BI w maryam HISTORY: Screening mammogram TECHNIQUE: Craniocaudal and mediolateral oblique 3-D tomosynthesis images were obtained and synthetic 2-D images were generated. CAD analysis was submitted and interpreted. COMPARISON: 05/13/2022, 02/05/2021, 01/02/2020 BREAST PARENCHYMAL COMPOSITION:Not Dense. There are scattered areas of fibroglandular density. FINDINGS: No suspicious mass, calcification, or architectural distortion are identified in either reyna ast to suggest malignancy. There has been no suspicious interval change. IMPRESSION: No mammographic evidence of malignancy. Recommend routine screening mammography in one year. BI-RADS Category 1: Negative Reviewed, dictated and finalized at location . 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
== END 2024-05-21 10:29 | disposition home or self-care (01) ==
LOC: ANHIMG 10:30
PROVIDERS: PCP Nurse Practitioner; Visit Provider Nurse Practitioner
DX: Z12.31 Encounter for screening mammogram for malignant neoplasm of breast (principal)
CPT/HCPCS: 77063; 77067

== ENCOUNTER 2024-07-04 16:57 | Emergency (ER) | payer MEDICARE, SELFPAY ==
--- NOTE | ~2024-07-04 | XR_ITS ---
Clinical Indication: Dizziness PA and lateral views of the chest: Comparison: 01/14/2024 Findings: The lungs are clear, without evidence of focal consolidation or pleural effusion. Cardiome diastinal silhouette is within normal limits. Bones and soft tissues are unremarkable. Impression: Normal chest. Reviewed, dictated and finalized at [facility]. ESMITH Impression: Normal chest.
--- NOTE | ~2024-07-04 | CT_ITS ---
Non-contrast Head CT History: Headache COMPARISON: 11/07/2023 Technique: Axial non-contrast imaging of the brain was performed. Dose reduction technique was used on this scan by utilizing automated exposure control and iterative reconstruction technique. The dose -length product (DLP) was 605.33 mGy-cm. Findings: There is no evidence of intracranial hemorrhage, mass lesion, or acute infarct. Brain par enchyma appears normal. The ventricles and subarachnoid spaces are normal in size. The calvarium ap pears normal. The visualized paranasal sinuses and mastoid air cells are clear. Impression: No significant abnormality seen. Reviewed, dictated and finalized at [facility]. AND BEVERAGE SERVICE MANAGER Impression: No significant abnormality seen.
[2024-07-04 16:59] VITALS: BP 196/78; PULSE 84; RESP 16; TEMP 36.3; O2SAT 97
--- OUTSIDE RECORDS SUMMARY | 2024-07-04 16:59 | XMS_ITS | Encounter Summary ---
Author Organization [facility] Address [address] [place] [address] Care Team Providers Care Curve Saw Operator Name Role Phone Unavailable Primary Care Provider Unavailabl e Encounter Details Date Type Department Care Team (Late st Contact Info) Description 11/28/2022 Lab Requisition [facility] - DermPath Lab [address] [place] [id number] Brittany Sandoval PA-C [address] [place] [phone] Neoplasm of uncertain behavior of skin Social History Tobacco Use Types Packs/Day Years Used Date Smoking Tobacco: Never Assessed Sex and Gender Information Value Date Recorded Sex Assigned at Not on file Gender Identity Not on file Sexual Orientation Not on file documented as of this encounter Plan of Treatment Not on file documented as of this encounter Procedures Procedure Name Priority Date/Time Associated Diagnosis Comments DERMATOPATHOLOGY Routine 11/28/2022 12:0 0 AM CDT Neoplasm of uncertain behavior of skin [ICD-10-CM] documented in this encounter Results * DERMATOPATHOLOGY (11/28/2022 12:00 AM CDT) Case Report Dermatopathology Report Case: [id number] Authorizing Provider: Brittany Sandoval PA-C Collected: 11/28/2022 12:00 AM Ordering Location: [facility] DermPath Lab Received: 12/02/2022 12:58 PM Pathologist: Mariam Block MD Specimens: A) - Skin, left posterior shoulder B) - Skin, right inframammary C) - Skin, right superior malar cheek 10:23 AM CDT DERMATOPATHOLOGY LABORATORY Final Diagnosis Specimen A. SKIN, left posterior shoulder: LICHEN SCLEROSUS ET ATROPHICUS, CONSISTENT WITH (L90.0) Specimen B. SKIN, right inframammary: LICHEN SCLEROSUS ET ATROPHICUS, CONSISTENT WITH (L90.0) Specimen C. SKIN, right superior malar cheek: ACTINIC KERATOSIS, ERODED (L57.0) 10:23 AM [facility] DERMATOPATHOLOGY LABORATORY Clinical History A-C: Superficial Basal Cell Carcinoma 10:23 AM [facility] DERMATOPATHOLOGY LABORATORY Gross Description Specimen A: Received is one formalin filled container labeled with the patient's name and designated left posterior shoulder. The specimen consists of a shave biopsy measuring 34z05m2 and 20x9x1 mm. Jar 0. Specimen B: Received is one formalin filled container labeled with the patient's name and designated right inframammary. The specimen consists of a shave biopsy measuring 32x7x1 and 27x7x1 mm. Jar 0. Specimen C: Received is one formalin filled container labeled with the patient's name and designated right superior malar cheek. The specimen consists of a shave biopsy measuring 7x6x1 mm. Jar 0. 10:23 AM [facility] DERMATOPATHOLOGY LABORATORY Microscopic Description Specimen A. SKIN, left posterior shoulder: There is compact hyperkeratosis, atrophy, and vacuolar alteration of the basal cell layer. The papillary dermis is sclerotic and homogeneous. Specimen B. SKIN, right inframammary: There is compact hyperkeratosis, atrophy, and vacuolar alteration of the basal cell layer. The papillary dermis is sclerotic and homogeneous. Specimen C. SKIN, right superior malar cheek: There is alternating orthokeratosis and parakeratosis. The epidermis is focally eroded. Along the undersurface of the epidermis, there are buds of atypical keratinocytes in a disorderly arrangement. 10:23 AM [facility] DERMATOPATHOLOGY LABORATORY Disclaimer An external and internal positive and negative controls are appropriate for the histochemical, immunohistochemical and immunofluorescence stain(s) in this case (if any), except where stated explicitly. The performance characteristics of the stain(s) cited in this report were developed and its performance characteristic determined by the Dermatopathology Laboratory at [facility], directed by Dr. Clotilde Duque. These tests need not be, and therefore are not, approved by the [place] Food and Drug Administration. The tests are used for clinical purposes. Billing Codes Specimen Charges Stain Charges 12041 44384 [id number] 1 1 1 3 10:23 AM CDT DERMATOPATHOLOGY LABORATORY Embedded Images 3 10:23 AM CDT DERMATOPATHOLOGY LABORATORY Pathology/Cytology TISSUE SPECIMEN FROM SKIN / Unknown 11/28/2022 12/02/2022 12:58 PM CDT Miscellaneous samples (specimen) TISSUE SPECIMEN FROM SKIN / Unknown 11/28/2022 12/02/2022 12:58 PM CDT Miscellaneous samples (specimen) TISSUE SPECIMEN FROM SKIN / Unknown 11/28/2022 12/02/2022 12:58 PM CDT Brittany Sandoval PA-C LAB - PATHOLOGY/CYTO LOGY ORDERABLES DERMATOPATHOLOGY LABORATORY [facility] - Department of Dermatology [facility] Medicine [address] [place] [address] [phone] documented in this encounter Visit Diagnoses Diagnosis Neoplasm of uncertain behavior of skin documented in this encounter
--- OUTSIDE RECORDS SUMMARY | 2024-07-04 16:59 | XMS_ITS | Clinical Summary ---
Author Organization [facility] Address [address] [place] [address] Care Team Providers Care Aircraft Launch And Recovery Technician Name Role Phone Unavailable Primary Care Provider Unavailabl e Source Comments [facility],non-owned Affiliates and Associated Physician Practices is amultiple site organization consisting of ambulatory clinics and hospital sitesin [place], [place], [place] and [place]. This disclosure is being madepursuant to the Care Everywhere program and may not contain all information available regarding this patient. Last updated 18.[facility] Social History Tobacco Use Types Packs/Day Years Used Date Smoking Tobacco: Never Assessed Sex and Gender Information Value Date Recorded Sex Assigned at Not on file Gender Identity Not on file Sexual Orientation Not on file Plan of Treatment Health Maintenance Due Date Last Done Comments BONE DENSITY TESTING 1948 COLOGUARD (AGES 45-75) - COL ON CA SCREENING 1948 COLON MONITORING 1948 COLONOSCOPY - COLON CA SCREENING 1948 CT COLONOGRAPHY - COLON CA SCREENING 1950 Colorectal Cancer Screening 1948 FIT - COLON CA SCREENING 1948 FLEX SIG - COLON CA SCREENING 1948 LIPID TESTING 1948 MAMMOGRAM 1948 HEPATITIS C SCREENING 09/03/1966 DTAP/TDAP/TD VACCINES (1 - Tdap) 09/08/1967 PNEUMOCOCCAL VACCINE 50+ (1 of 1 - PCV) 1998 ZOSTER VACCINE (1 of 2) 1998 Respiratory Syncytial Virus (RSV) Vaccine Pt: or over 60 yrs (1 - 1-dose 75+ series) 09/08/2023 COVID-19 VACCINE ( - 2023-2 5 season) 2024 INFLUENZA VACCINE (#1) 2024 DEPRESSION SCREENING 05/25/2024 MEDICARE AWV CALENDAR YEAR 2024 HEPATITIS B VACCINE Aged Out No longe r eligible based on patient's age to complete this topic HIB VACCINE Aged Out No longer eligi ble based on patient's age to complete this topic HPV VACCINE Aged Out No longer eligi ble based on patient's age to complete this topic MENINGOCOCCAL (Group B) VACCINE Aged Out No longer eligible based on patient's age to complete this topic MENINGOCOCCAL VACCINE Aged Out No amanda elke eligible based on patient[place] [address]
--- OUTSIDE RECORDS SUMMARY | 2024-07-04 16:59 | XMS_ITS | Patient Health Summary ---
Author Organization [facility] Address [address] [place] [address] Care Team Providers Care Patient Access Representative Name Role Phone Unavailable Primary Care Provider Unavailabl e Note from [facility],non-owned Affiliates and Associated Physician Practices is amultiple site organization consisting of ambulatory clinics and hospital sitesin [place], [place], [place] and [place]. This disclosure is being madepursuant to the Care Everywhere program and may not contain all information available regarding this patient. Last updated 18.[facility] Social History Tobacco Use Types Packs/Day Years Used Date Smoking Tobacco: Never Assessed Sex and Gender Information Value Date Recorded Sex Assigned at Not on file Gender Identity Not on file Sexual Orientation Not on file Procedures * DERMATOPATHOLOGY(Performed 11/28/2022) Performed for Neoplasm of uncertain behavior of skin [ICD-10-CM] Results * DERMATOPATHOLOGY (11/28/2022 12:00 AM CDT) Case Report Dermatopathology Report Case: [id number] Authorizing Provider: Brittany Sandoval PA-C Collected: 11/28/2022 12:00 AM Ordering Location: [facility] DermPath Lab Received: 12/02/2022 12:58 PM Pathologist: Mariam Block MD Specimens: A) - Skin, left posterior shoulder B) - Skin, right inframammary C) - Skin, right superior malar cheek 3 10:23 AM CDT DERMATOPATHOLOGY LABORATORY Final Diagnosis Specimen A. SKIN, left posterior shoulder: LICHEN SCLEROSUS ET ATROPHICUS, CONSISTENT WITH (L90.0) Specimen B. SKIN, right inframammary: LICHEN SCLEROSUS ET ATROPHICUS, CONSISTENT WITH (L90.0) Specimen C. 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 The specimen consists of a shave biopsy measuring [id number] and 20x9x1 mm. Jar 0. Specimen B: [...] measuring 7x6x1 mm. Jar 0. 10:23 AM [facility] DERMATOPATHOLOGY LABORATORY Microscopic Description Specimen A. SKIN, [...] keratinocytes in a disorderly arrangement. 10:23 AM [facility] DERMATOPATHOLOGY LABORATORY Disclaimer An external and internal positive and negative controls are appropriate for the histochemical, immunohistochemical and immunofluorescence stain(s) in this case (if any), except where stated explicitly. The performance characteristics of the stain(s) cited in this report were developed and its performance characteristic determined by the Dermatopathology Laboratory at [facility], directed by Dr. Clotilde Duque. These tests need not be, and therefore are not, approved by the [place] Food and Drug Administration. The tests are used for clinical purposes. Billing Codes Specimen Charges Stain Charges 25957 45220 08930 1 1 1 10:23 AM [facility] DERMATOPATHOLOGY LABORATORY Embedded Images 10:23 AM CDT DERMATOPATHOLOGY LABORATORY Pathology/Cytology TISSUE SPECIMEN FROM SKIN / Unknown 11/28/2022 12/02/2022 12:58 PM CDT Miscellaneous samples (specimen) TISSUE SPECIMEN FROM SKIN / Unknown 11/28/2022 12/02/2022 12:58 PM CDT Miscellaneous samples (specimen) TISSUE SPECIMEN FROM SKIN / Unknown 11/28/2022 12/02/2022 12:58 PM CDT Brittany Sandoval PA-C LAB - PATHOLOGY/CYTO LOGY ORDERABLES DERMATOPATHOLOGY LABORATORY [facility] - Department of Dermatology [facility] Specialized Medicine [address] [place] [address], [address] [phone]
--- OUTSIDE RECORDS SUMMARY | 2024-07-04 16:59 | XMS_ITS | Referral Summary ---
Author Organization [facility] Address [address] [place] [address] Care Team Providers Care Street Engineer Name Role Phone Unavailable Primary Care Provider Unavailabl e Source Comments [facility],non-owned Affiliates and Associated Physician Practices is amultiple site organization consisting of ambulatory clinics and hospital sitesin [place], [place], [place] and [place]. This disclosure is being madepursuant to the Care Everywhere program and may not contain all information available regarding this patient. Last updated 18.[facility] Social History Tobacco Use Types Packs/Day Years Used Date Smoking Tobacco: Never Assessed Sex and Gender Information Value Date Recorded Sex Assigned at Not on file Gender Identity Not on file Sexual Orientation Not on file [place] [id number]
--- OUTSIDE RECORDS SUMMARY | 2024-07-04 16:59 | XMS_ITS | Clinical Summary ---
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
--- OUTSIDE RECORDS SUMMARY | 2024-07-04 16:59 | XMS_ITS | Referral Summary ---
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
--- NOTE | 2024-07-04 17:36 | ED.GENADULT ---
HPI - General Adult General Chief complaint: Unspecified <Sheri Madrid PA-C - Last Filed: 07/06/24 19:41> Stated complaint: high BP, dizzy/shaky <Sheri Madrid PA-C - Last Filed: 07/06/24 19:41> Time Seen by Provider: 07/04/24 17:36 <Sheri Madrid PA-C - Last Filed: 07/06/24 19:41> Focused HPI: This is a 73 year old female that presents to the ER for elevated blood pressure. Reports she recently had her medications changed (Atenolol to Hydralazine) without relief. She is experiencing headaches. She took Tylenol without relief. Reports she feels shaky/dizzy. GENERAL: Elderly, well-nourished, and in no acute distress. HEAD: Normocephalic, atraumatic. CHEST: Clear to auscultation. ?No respiratory distress. HEART: Regular rate and rhythm.? NEURO: ?Alert and oriented x3. Patient screened in triage and initial orders placed.? ?Additional care and disposition to be based upon?diagnostic testing and treatment. <Sheri Madrid PA-C - Last Filed: 07/06/24 19:41> History of Present Illness HPI narrative: Agree with the above with following additions/corrections: Headache is associated with nausea. No photophobia but she does have phonophobia. Not chronically opiates. She states that she had cataract surgery in approximately 1 year ago and has had intermittent vision issues that persist. Particular this is blurred vision but she denies any diplopia. Patient has a bilateral forehead headache. She states is similar previous headaches though she states she previously had headaches they were sinus headaches or cluster headaches and this has not a. Not on anticoagulation. She has been checking her blood pressure has been elevated. After systolic was greater 200. She has been dizzy reports being off the commode shaky. She has been compliant with the new change in blood pressure medication which took place 2 weeks ago. She took time for the headache with no change. No slurred speech, chest pain shortness of breath. She will experience intermittent paresthesias in her bilateral fingers and feet. She states she has been 3rd although her family for states that she has. Patient states that it is that she is altered just this time she chooses to engage she is being talked to. Patient thinks her symptoms may be stress related as there are multiple people in his liver. Her son [id number] daughter and granddaughter live in her house along with a total of 6 dogs. No recent trauma . States her PCP is Kylee Doyle. <Marbella Nina MD - Last Filed: 07/05/24 18:44> Related Data Home medications: Home Medications ?Medication ?Instructions ?Recorded ?Confirmed ?Last Taken ?Type multivit with minerals-iron 18 1 tablet PO DAILY 11/16/20 06/13/24 11/26/20 History mg-folic ac 400 mcg-vit K 25 mcg tablet (Adults Multivitamin) melatonin 10 mg capsule 10 mg PO QHS 12/04/22 06/13/24 Unknown History <Sheri Madrid PA-C - Last Filed: 07/06/24 19:41> Allergies/adverse reactions: Allergies Allergy/AdvReac Type Severity Reaction Status Date / Time simvastatin Allergy Intermediate myalgia Verified 07/04/24 17:04 suvorexant (Belsomra) Allergy Intermediate myalgias Verified 07/04/24 17:04 bacitracin Allergy Mild rash Verified 07/04/24 17:04 mirtazapine Allergy Unknown Pt does Verified 07/04/24 17:04 not remember reaction codeine AdvReac Mild Dizziness Verified 07/04/24 17:04 doxycycline AdvReac Mild Nausea Verified 07/04/24 17:04 escitalopram AdvReac Mild headaches, Verified 07/04/24 17:04 dizziness ezetimibe AdvReac Mild hot flashes Verified 07/04/24 17:04 fluoxetine AdvReac Mild Anxious Verified 07/04/24 17:04 guaifenesin (Entex T) AdvReac Mild Anxious Verified 07/04/24 17:04 hydrocodone AdvReac Mild GI UPSET- Verified 07/04/24 17:04 VICODIN polymyxin B AdvReac Mild rash Verified 07/04/24 17:04 pseudoephedrine (Entex T) AdvReac Mild Anxious Verified 07/04/24 17:04 <Sheri Madrid PA-C - Last Filed: 07/06/24 19:41> Review of Systems Review of Systems: All systems reviewed & are unremarkable except as noted in HPI and below <Sheri Madrid PA-C - Last Filed: 07/06/24 19:41> [facility] Past Medical History Medical History: Medical History (Updated 07/06/24 @ 19:41 by Sheri Madrid PA-C) Tongue abnormality (~09/2022) growth removed by Post menopausal problems Fibromyalgia Arthritis Kidney stones MVP (mitral valve prolapse) Peripheral neuropathy Chronic fatigue syndrome TTS (tarsal tunnel syndrome) Broken shoulder Chronic tension-type headache, not intractable Disorder of carbohydrate metabolism, unspecified Dysplastic nevus Essential (primary) hypertension Irritable bowel syndrome without diarrhea Major depressive disorder, recurrent, moderate Mixed hyperlipidemia Type 2 diabetes mellitus with complication, without long-term current use of insulin <Sheri Madrid PA-C - Last Filed: 07/06/24 19:41> Surgical History Surgical History: Surgical History (Updated 07/05/24 @ 18:30 by Marbella Nina MD) Hx of cataract extraction 2023 History of bladder suspension procedure H/O tubal ligation History of bilateral tubal ligation H/O section (~1988) History of sinus surgery (~1996) H/O arthroscopy of shoulder (~1998) History of bladder surgery (~1994) H/O arthroscopy of shoulder (~1994) History of foot surgery (~2000) <Sheri Madrid PA-C - Last Filed: 07/06/24 19:41> Family History Family History: Family History Mother Family history of suicide Patient's mother is Father Family history of throat cancer Patient's father is , Onset Age: 58 Sibling Family history of coronary artery disease Alcoholism Depression Heart disease COPD (chronic obstructive pulmonary disease) Grandparent Alcoholism Cancer Diabetes mellitus Hypertension COPD (chronic obstructive pulmonary disease) Grandparent Cancer Other Family history of alcoholism Family history of cardiovascular disease Family history of elevated blood lipids Family history of mental disorder No family history of allergies <Sheri Madrid PA-C - Last Filed: 07/06/24 19:41> Social History Social History: Social History Social History: Caffeine-tea Smoking status: Never smoker Alcohol intake: current Alcohol use details: rarely beer Substance use: never Substance use type: does not use Lack of Transportation: No Lack of Food: Never True Current Housing: I Have Housing Concerned About Future Housing: No Difficulty Paying Gas/Electric Bills: No Difficulty Paying for Meds: No Currently Unemployed: No Education: Master's Degree or Higher Difficulty w/ Childcare or Family Care: No Living arrangements: with family Gender identity (if verbalized by the patient): Female Spiritual care concerns: No <Sheri Madrid PA-C - Last Filed: 07/06/24 19:41> Exam Narrative: GENERAL: Well-appearing, well-nourished, and in no acute distress. HEAD: Normocephalic, atraumatic. EYES: Non injected, non icteric. Pinpoint pupils bilaterally. ENT: Nares clear, no rhinorrhea or epistaxis. NECK: Supple. Full range of motion of neck CHEST: Speaking in full sentences. No respiratory distress. HEART: Regular rate and rhythm. . ABDOMEN: Soft, nondistended. EXTREMITIES: Normal range of motion. No lower extremity edema. No motor drift x4. SKIN: Warm, dry, no rash. NEURO: No focal deficits. Alert and oriented x3. No extinction. Patient speaks clearly without aphasia or dysarthria. Follows commands. Questionable ataxia on left [id number] but otherwise without ataxia on right heel to greene or on nose finger thus possibly due to limitations in flexibility. PSYCH: Normal mood and affect. <Marbella Nina MD - Last Filed: 07/05/24 18:44> Course Vital Signs Vital signs: Vital Signs Temperature 97.4 F L 07/04/24 16:59 Pulse Rate 84 07/04/24 16:59 Respiratory Rate 16 07/04/24 16:59 Blood Pressure 196/78 H 07/04/24 16:59 Pulse Oximetry 97 07/04/24 16:59 Temperature 98.4 F 07/04/24 21:30 Pulse Rate 68 07/05/24 02:28 Respiratory Rate 26 H 07/05/24 02:28 Blood Pressure 168/80 H 07/05/24 02:28 Pulse Oximetry 98 07/05/24 02:28 <Sheri Madrid PA-C - Last Filed: 07/06/24 19:41> Vital Signs Temperature 97.4 F L 07/04/24 16:59 Pulse Rate 84 07/04/24 16:59 Respiratory Rate 16 07/04/24 16:59 Blood Pressure 196/78 H 07/04/24 16:59 Pulse Oximetry 97 07/04/24 16:59 Temperature 98.4 F 07/04/24 21:30 Pulse Rate 68 07/05/24 02:28 Respiratory Rate 26 H 07/05/24 02:28 Blood Pressure 168/80 H 07/05/24 02:28 Pulse Oximetry 98 07/05/24 02:28 <Marbella Nina MD - Last Filed: 07/05/24 18:44> Medical Decision Making MDM Narrative Medical decision making narrative: Patient presents concern for a headache that has been intractable. She has a history previous headaches way she states usually these are sinus or cluster and neither of those have even had been while. She is concerned because her blood pressure has been markedly elevated, systolic 200 mmHg at home. Recent (within past 2 weeks) BP med change which she has been compliant with. In the emergency department she is afebrile with vital signs notable for hypertension, initially 196/78 but 231/95 upon being roomed. Hyperglycemia without anion gap acidosis. Mild hypokalemia which we will replete. Possible NIHSS = 1 for L ataxia on heel-greene however normal on FNF thus I suspect this is more due to flexibility in performing this study. Unlikely subdural/epidural hematoma: no history of trauma, no anticoagulation Unlikely meningitis: afebrile, no meningismus, no photophobia Unlikely carbon monoxide poisoning: no other house members with similar symptoms Considered hypertensive emergency. The extensive neurological examination is non-focal, and the patient is non-toxic appearing. Other Ddx for the patient's headache is tension headache, migraine, or other headache of non-emergent etiology. Had initially considered obtaining CTA brain carotid and CTA chest abdomen pelvis to assess for stenosis and dissection of carotid and/or aorta. However, she is otherwise well-appearing. Discussed with Dr Aiken radiologist to determine best study. At this time, BP much improved 154/79 (MAP 100). She states the headache has still not abated. CT non contrast has been negative. Reasonable to attempt to treat patient's hypertension and headache simultaneously as is unclear which might be contributing to the other. The patient's headache was treated symptomatically with ketorolac, benadryl compazine. Visual acuity 20/25 and 20/20. Upon reevaluation, she states her headache is much better. Her blood pressure has increased again, 177/82, however she is otherwise asymptomatic at this time. We discussed that it can sometimes be difficult to know whether the high blood pressures driving headache or rather if the pain from the headache is driving blood pressure to be elevated. She states as of right now she has an appointment to see her primary care physician in 4 months however it is fairly easy to call and get an appointment for follow-up. Will be discharged with strict return precautions and instructions to follow up with their PCP in the next 1-2 days. She is given 1 time dose of a steroid is this has been shown to reduce the occurrence of a bounce-back/rebound headache. She feels comfortable with this plan as does her son. All questions answered. She has a blood pressure cuff at home and I advised that she keep a log of the time of day, if she has or has not yet taken her medication yet, and if she is having any symptoms and she can take this log No contraindications to NSAIDs we talked about combining acetaminophen with this. I also encouraged her to come back with any new or worsening symptoms and she verified understanding and was in agreement. <Marbella Nina MD - Last Filed: 07/05/24 18:44> Vital Signs Vital Signs: Vital Signs Temperature 97.4 F L 07/04/24 16:59 Pulse Rate 84 07/04/24 16:59 Respiratory Rate 16 07/04/24 16:59 Blood Pressure 196/78 H 07/04/24 16:59 Pulse Oximetry 97 07/04/24 16:59 Temperature 98.4 F 07/04/24 21:30 Pulse Rate 68 07/05/24 02:28 Respiratory Rate 26 H 07/05/24 02:28 Blood Pressure 168/80 H 07/05/24 02:28 Pulse Oximetry 98 07/05/24 02:28 <Sheri Madrid PA-C - Last Filed: 07/06/24 19:41> Vital Signs Temperature 97.4 F L 07/04/24 16:59 Pulse Rate 84 07/04/24 16:59 Respiratory Rate 16 07/04/24 16:59 Blood Pressure 196/78 H 07/04/24 16:59 Pulse Oximetry 97 07/04/24 16:59 Temperature 98.4 F 07/04/24 21:30 Pulse Rate 68 07/05/24 02:28 Respiratory Rate 26 H 07/05/24 02:28 Blood Pressure 168/80 H 07/05/24 02:28 Pulse Oximetry 98 07/05/24 02:28 <Marbella Nina MD - Last Filed: 07/05/24 18:44> Lab Data Lab results reviewed: Yes I reviewed the patient's lab results. <Marbella Nina MD - Last Filed: 07/05/24 18:44> Result diagrams: 07/04/24 22:22 07/04/24 22:22 <Sheri Madrid PA-C - Last Filed: 07/06/24 19:41> Labs: Lab Results 07/04/24 Range/Units 22:22 WBC 6.8 (4.5-10.0) K/mm3 RBC 4.70 (4.2-5.4) M/mm3 Hgb 13.3 (12.0-15.0) g/dL Hct 41.5 (37.0-47.0) % MCV 88.3 (80-100) fl MCH 28.3 (26-34) pg MCHC 32.0 (32-36) g/dl RDW 13.2 (11.5-14.5) % Plt Count 212 (150-375) k/mm3 MPV 11.3 H (7.4-10.4) fl Immature Gran % (Auto) 0.1 (0-0.5) % Neut % (Auto) 56.3 (45.5-73.1) % Lymph % (Auto) 33.3 (18.3-44.2) % [place] % (Auto) 8.7 H (2.6-8.5) % Eos % (Auto) 1.2 (0-4.4) % Baso % (Auto) 0.4 (0.2-1.2) % Lymph # (Auto) 2.27 (0.9-3.2) K/mm3 [place] # (Auto) 0.6 (0.1-0.6) K/mm3 Eos # (Auto) 0.1 (0-0.3) K/mm3 Baso # (Auto) 0.0 (0.0-0.1) K/mm3 Abs Immat Gran (auto) 0.01 (0.00-0.031) K/mm3 Absolute Neuts (auto) 3.8 (1.3-6.7) K/mm3 Absolute Nucleated RBC 0.000 (0.0-0.012) K/mm3 Nucleated RBC % 0.0 (0.0-0.2) % Sodium 140 (137-145) mmol/L Potassium 3.3 L (3.4-5.0) mmol/L Chloride 104 (98-107) mmol/L Carbon Dioxide 26 (22-30) mmol/L Anion Gap 10 (4-12) mmol/L BUN 13 (7-17) mg/dL Creatinine 0.68 L (0.7-1.0) mg/dL Estim Creat Clear Calc 63 ml/min Estimated GFR > 60 (59 - ) Glucose 168 H (65-110) mg/dL Calcium 9.2 (8.4-10.2) mg/dL Magnesium 1.9 (1.6-2.3) mg/dL Total Bilirubin 0.4 (0.2-1.3) mg/dL AST 26 (14-36) U/L ALT 23 (6-35) U/L Alkaline Phosphatase 71 (38-126) U/L Troponin I < 0.012 (0.000-0.034) ng/mL NT-Pro-B Natriuret Pep 141 H (19.9-100) pg/mL Total Protein 7.0 (6.3-8.2) g/dL Albumin 4.2 (3.5-5.1) g/dL <Sheri Madrid PA-C - Last Filed: 07/06/24 19:41> Lab Results 07/04/24 Range/Units 22:22 WBC 6.8 (4.5-10.0) K/mm3 RBC 4.70 (4.2-5.4) M/mm3 Hgb 13.3 (12.0-15.0) g/dL Hct 41.5 (37.0-47.0) % MCV 88.3 (80-100) fl MCH 28.3 (26-34) pg MCHC 32.0 (32-36) g/dl RDW 13.2 (11.5-14.5) % Plt Count 212 (150-375) k/mm3 MPV 11.3 H (7.4-10.4) fl Immature Gran % (Auto) 0.1 (0-0.5) % Neut % (Auto) 56.3 (45.5-73.1) % Lymph % (Auto) 33.3 (18.3-44.2) % [place] % (Auto) 8.7 H (2.6-8.5) % Eos % (Auto) 1.2 (0-4.4) % Baso % (Auto) 0.4 (0.2-1.2) % Lymph # (Auto) 2.27 (0.9-3.2) K/mm3 [place] # (Auto) 0.6 (0.1-0.6) K/mm3 Eos # (Auto) 0.1 (0-0.3) K/mm3 Baso # (Auto) 0.0 (0.0-0.1) K/mm3 Abs Immat Gran (auto) 0.01 (0.00-0.031) K/mm3 Absolute Neuts (auto) 3.8 (1.3-6.7) K/mm3 Absolute Nucleated RBC 0.000 (0.0-0.012) K/mm3 Nucleated RBC % 0.0 (0.0-0.2) % Sodium 140 (137-145) mmol/L Potassium 3.3 L (3.4-5.0) mmol/L Chloride 104 (98-107) mmol/L Carbon Dioxide 26 (22-30) mmol/L Anion Gap 10 (4-12) mmol/L BUN 13 (7-17) mg/dL Creatinine 0.68 L (0.7-1.0) mg/dL Estim Creat Clear Calc 63 ml/min Estimated GFR > 60 (59 - ) Glucose 168 H (65-110) mg/dL Calcium 9.2 (8.4-10.2) mg/dL Magnesium 1.9 (1.6-2.3) mg/dL Total Bilirubin 0.4 (0.2-1.3) mg/dL AST 26 (14-36) U/L ALT 23 (6-35) U/L Alkaline Phosphatase 71 (38-126) U/L Troponin I < 0.012 (0.000-0.034) ng/mL NT-Pro-B Natriuret Pep 141 H (19.9-100) pg/mL Total Protein 7.0 (6.3-8.2) g/dL Albumin 4.2 (3.5-5.1) g/dL <Marbella Nina MD - Last Filed: 07/05/24 18:44> Imaging Data Radiologist's impression: Impression: Normal chest. Impression: No significant abnormality seen. <Sheri Madrid PA-C - Last Filed: 07/06/24 19:41> ession: Normal chest. Impression: No significant abnormality seen. <Marbella Nina MD - Last Filed: 07/05/24 18:44> Critical Care Time Critical Care Time Critical Care Time: No <Sheri Madrid PA-C - Last Filed: 07/06/24 19:41> Discharge Plan Discharge Clinical Impression: Hypokalemia, Hyperglycemia due to diabetes mellitus Headache Qualifiers: Headache type: unspecified Headache chronicity pattern: acute headache Intractability: not intractable Qualified Code(s): R51.9 - Headache, unspecified Hypertension Qualifiers: Hypertension type: unspecified Qualified Code(s): I10 - Essential (primary) hypertension <Sheri Madrid PA-C - Last Filed: 07/06/24 19:41> Patient Disposition: Home, Self-Care <Sheri Madrid PA-C - Last Filed: 07/06/24 19:41> Condition: Stable <Sheri Madrid PA-C - Last Filed: 07/06/24 19:41> Instructions: Antibiotic Form, Hypokalemia (ED), Acute Headache (DC), Hypertension (ED), Diabetic Hyperglycemia (ED), Mediterranean Diet (DC), Hypertension and Diabetes (ED) <Sheri Madrid PA-C - Last Filed: 07/06/24 19:41> Additional Instructions: Acetaminophen/Tylenol (maximum 4000 mg per day) is safe to take with NSAIDs (ibuprofen/Motrin) for pain relief. As we discussed, keep a log of your blood pressure readings at home indicating what time you measure it, if you have taking your medication or not, and if you are having symptoms at that time. Take this log to your primary care provider so a determination can be made about changing your medication regimen. Return to the emergency department with any new or worsening symptoms. <Sheri Madrid PA-C - Last Filed: 07/06/24 19:41> Patient Language: Samoan <Sheri Madrid PA-C - Last Filed: 07/06/24 19:41> Prescriptions: New ibuprofen 600 mg tablet 600 mg PO TID PRN (Reason: pain) Qty: 30 0RF acetaminophen 500 mg capsule 1,000 mg PO Q6H PRN (Reason: pain) Qty: 30 0RF No Action melatonin 10 mg capsule 10 mg PO QHS triamterene-hydrochlorothiazid 37.5-25 mg tablet 1 tablet PO QAM Qty: 90 1RF Pepto-Bismol 262 mg tablet 524 mg PO TID 30 Days Qty: 180 2RF cholecalciferol (vitamin D3) 25 mcg (1,000 unit) tablet 25 mcg PO DAILY Qty: 90 1RF fluticasone propionate 50 mcg/actuation spray,suspension 1 spray intranasal BID Qty: 16 2RF Rx Instructions: administer into each nostril hydralazine 25 mg tablet 25 mg PO DAILY Qty: 30 0RF Adults Multivitamin 18 mg iron-400 mcg-25 mcg Tablet 1 tablet PO DAILY metformin 500 mg tablet extended release 24 hr 1,000 mg PO BID Qty: 360 1RF atenolol 50 mg tablet 50 mg PO DAILY Qty: 90 1RF levothyroxine 75 mcg tablet See Rx Instructions .ROUTE .COMPLEX Qty: 90 1RF Dose Instruction: Take 1 tablet by mouth once daily Rx Instructions: Take 1 tablet by mouth once daily paroxetine HCl 30 mg tablet 30 mg PO DAILY Qty: 90 1RF rosuvastatin 10 mg tablet See Rx Instructions .ROUTE .COMPLEX Qty: 90 1RF Dose Instruction: Take 1 tablet by mouth once daily Rx Instructions: Take 1 tablet by mouth once daily zolpidem 10 mg tablet 10 mg PO QHS PRN (Reason: insomnia) Qty: 90 1RF <Sheri Madrid PA-C - Last Filed: 07/06/24 19:41> Follow-up/Referrals: Angelica Roche, [employer]ING [employer]OLING MACHINE OPERATOR-C [Primary Care Provider] - <Sheri Madrid PA-C - Last Filed: 07/06/24 19:41>
[2024-07-04 21:30] VITALS: BP 231/95; PULSE 89; TEMP 36.9; O2SAT 94
--- OUTSIDE RECORDS SUMMARY | 2024-07-04 22:00 | XMS_ITS | Clinical Summary ---
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
--- OUTSIDE RECORDS SUMMARY | 2024-07-04 22:00 | XMS_ITS | Referral Summary ---
Author Organization [facility] Address [address] [place] [address] Care Team Providers Care Kier Tender Name Role Phone Unavailable Primary Care Provider Unavailabl e Source Comments [facility],non-owned Affiliates and Associated Physician Practices is amultiple site organization consisting of ambulatory clinics and hospital sitesin [place], [place], [place] and [place]. This disclosure is being madepursuant to the Care Everywhere program and may not contain all information available regarding this patient. Last updated 18.[facility] [employer] Social History Tobacco Use Types Packs/Day Years Used Date Smoking Tobacco: Never Assessed Sex and Gender Information Value Date Recorded Sex Assigned at Not on file Gender Identity Not on file Sexual Orientation Not on file [place] [id number]
--- OUTSIDE RECORDS SUMMARY | 2024-07-04 22:00 | XMS_ITS | Patient Health Summary ---
Author Organization [facility] Address [address] [place] [address] Care Team Providers Care Scheduling Assistant Name Role Phone Unavailable Primary Care Provider Unavailabl e Note from [facility],non-owned Affiliates and Associated Physician Practices is amultiple site organization consisting of ambulatory clinics and hospital sitesin [place], [place], [place] and [place]. This disclosure is being madepursuant to the Care Everywhere program and may not contain all information available regarding this patient. Last updated 18.[facility] Social History Tobacco Use Types Packs/Day Years Used Date Smoking Tobacco: Never Assessed Sex and Gender Information Value Date Recorded Sex Assigned at Not on file Gender Identity Not on file Sexual Orientation Not on file Procedures * DERMATOPATHOLOGY(Performed 11/28/2022) Performed for Neoplasm of uncertain behavior of skin [ICD-10-CM] Results * DERMATOPATHOLOGY (11/28/2022 12:00 AM CDT) Case Report Dermatopathology Report Case: [id number] Authorizing Provider: Brittany Sandoval PA-C Collected: 11/28/2022 12:00 AM Ordering Location: [facility] DermPath Lab Received: 12/02/2022 12:58 [...] A-C: Superficial Basal Cell Carcinoma 10:23 AM [facility] DERMATOPATHOLOGY LABORATORY Gross Description Specimen A: Received is one formalin filled container labeled with the patient's name and designated left posterior shoulder. The specimen consists of a shave biopsy measuring [id number] and 20x9x1 mm. Jar 0. Specimen B: [...] measuring 7x6x1 mm. Jar 0. 10:23 AM [facility] DERMATOPATHOLOGY LABORATORY Microscopic Description Specimen A. SKIN, [...] keratinocytes in a disorderly arrangement. 10:23 AM [facility] DERMATOPATHOLOGY LABORATORY Disclaimer An external and internal positive and negative controls are appropriate for the histochemical, immunohistochemical and immunofluorescence stain(s) in this case (if any), except where stated explicitly. The performance characteristics of the stain(s) cited in this report were developed and its performance characteristic determined by the Dermatopathology Laboratory at [facility], directed by Dr. Clotilde Duque. These tests need not be, and therefore are not, approved by the [place] Food and Drug Administration. The tests are used for clinical purposes. Billing Codes Specimen Charges Stain Charges 24809 36362 46248 1 1 1 10:23 AM [facility] DERMATOPATHOLOGY LABORATORY Embedded Images 10:23 AM CDT DERMATOPATHOLOGY LABORATORY Pathology/Cytology TISSUE SPECIMEN FROM SKIN / Unknown 11/28/2022 12/02/2022 12:58 PM CDT Miscellaneous samples (specimen) TISSUE SPECIMEN FROM SKIN / Unknown 11/28/2022 12/02/2022 12:58 PM CDT Miscellaneous samples (specimen) TISSUE SPECIMEN FROM SKIN / Unknown 11/28/2022 12/02/2022 12:58 PM CDT Brittany Sandoval PA-C LAB - PATHOLOGY/CYTO LOGY ORDERABLES DERMATOPATHOLOGY LABORATORY [facility] - Department of Dermatology [facility] Specialized Medicine [address] [place] [address], [address] [phone]
--- OUTSIDE RECORDS SUMMARY | 2024-07-04 22:00 | XMS_ITS | Clinical Summary ---
Author Organization [facility] Address [address] [place] [address] Care Team Providers Care Vegetable Inspector Name Role Phone Unavailable Primary Care Provider Unavailabl e Source Comments [facility],non-owned Affiliates and Associated Physician Practices is amultiple site organization consisting of ambulatory clinics and hospital sitesin [place], [place], [place] and [place]. This disclosure is being madepursuant to the Care Everywhere program and may not contain all information available regarding this patient. Last updated 18.[facility] Social History Tobacco Use Types Packs/Day Years [...] on patient's age [place] [address]
--- OUTSIDE RECORDS SUMMARY | 2024-07-04 22:00 | XMS_ITS | Referral Summary ---
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
--- OUTSIDE RECORDS SUMMARY | 2024-07-04 22:00 | XMS_ITS | Encounter Summary ---
Author Organization [facility] Address [address] [place] [address] Care Team Providers Care Corrugator Supervisor Name Role Phone Unavailable Primary Care Provider Unavailabl e Encounter Details Date Type Department Care Team (Late st Contact Info) Description 11/28/2022 Lab Requisition [facility] - DermPath Lab [address] [facility] [place] [id number] Brittany Sandoval PA-C [address] [place] [phone] Neoplasm of uncertain behavior of skin [...] AM CDT) Case Report Dermatopathology Report Case: [id number] Authorizing Provider: Brittany Sandoval PA-C Collected: 11/28/2022 12:00 AM Ordering Location: [facility] DermPath Lab Received: 12/02/2022 12:58 PM [...] cheek: ACTINIC KERATOSIS, ERODED (L57.0) 10:23 AM [facility] DERMATOPATHOLOGY LABORATORY Clinical History A-C: Superficial Basal Cell Carcinoma 10:23 AM [facility] DERMATOPATHOLOGY LABORATORY Gross Description Specimen A: Received is one formalin filled container labeled with the patient's name and designated left posterior shoulder. The specimen consists of a shave biopsy measuring [id number] and 20x9x1 mm. Jar 0. Specimen B: [...] measuring 7x6x1 mm. Jar 0. 10:23 AM [facility] DERMATOPATHOLOGY LABORATORY Microscopic Description Specimen A. SKIN, [...] keratinocytes in a disorderly arrangement. 10:23 AM [facility] DERMATOPATHOLOGY LABORATORY Disclaimer An external and internal positive and negative controls are appropriate for the histochemical, immunohistochemical and immunofluorescence stain(s) in this case (if any), except where stated explicitly. The performance characteristics of the stain(s) cited in this report were developed and its performance characteristic determined by the Dermatopathology Laboratory at [facility], directed by Dr. Clotilde Duque. These tests need not be, and therefore are not, approved by the [place] Food and Drug Administration. The tests are used for clinical purposes. Billing Codes Specimen Charges Stain Charges 43634 15642 53247 1 1 1 3 10:23 AM CDT [...] LAB - PATHOLOGY/CYTO LOGY ORDERABLES DERMATOPATHOLOGY LABORATORY [facility] - Department of Dermatology [facility] Medicine [address] [place] [address] [phone] documented in this encounter Visit Diagnoses Diagnosis Neoplasm of uncertain behavior of skin documented in this encounter
[2024-07-04 22:31] LABS: Basophils Percent Auto 0.4 % (0.2-1.2); Eosinophils Absolute Auto 0.1 K/mm3 (0-0.3); Eosinophils Percent Auto 1.2 % (0-4.4); Hematocrit 41.5 % (37.0-47.0); Hemoglobin 13.3 g/dL (12.0-15.0); Immature Granulocyte Absolute 0.01 K/mm3 (0.00-0.031); Immature Granulocyte Percent A 0.1 % (0-0.5); Lymphocytes Absolute Auto 2.27 K/mm3 (0.9-3.2); Lymphocytes Percent Auto 33.3 % (18.3-44.2); Mean Corpuscular Hemoglobin 28.3 pg (26-34); Mean Corpuscular Volume 88.3 fl (80-100); Mean Platelet Volume 11.3 fl (7.4-10.4); Monocytes Absolute Auto 0.6 K/mm3 (0.1-0.6); Monocytes Percent Auto 8.7 % (2.6-8.5); Neutrophils Absolute Auto 3.8 K/mm3 (1.3-6.7); Neutrophils Percent Auto 56.3 % (45.5-73.1); Platelet Count Result 212 k/mm3 (150-375); Red Cell Distribution Width 13.2 % (11.5-14.5); White Blood Count 6.8 K/mm3 (4.5-10.0)
[2024-07-04 22:38] VITALS: PULSE 72; RESP 22; O2SAT 96
[2024-07-04 22:40] LABS: Alanine Aminotransferase 23 U/L (6-35); Albumin Level 4.2 g/dL (3.5-5.1); Alkaline Phosphatase 71 U/L (38-126); Anion Gap 10 mmol/L (4-12); Aspartate Amino Transferase 26 U/L (14-36); Bilirubin,Total 0.4 mg/dL (0.2-1.3); Blood Urea Nitrogen 13 mg/dL (7-17); Calcium 9.2 mg/dL (8.4-10.2); Carbon Dioxide 26 mmol/L (22-30); Chloride 104 mmol/L (98-107); Estimated CRCL calculation 63 ml/min; Estimated Glomerular Filt Rate > 60; Glucose 168 mg/dL (65-110); Potassium 3.3 mmol/L (3.4-5.0); Sodium 140 mmol/L (137-145)
[2024-07-04 23:00] LABS: NT Pro B Type Natriuretic Pept 141 pg/mL (19.9-100)
[2024-07-04 23:03] LABS: Troponin I < 0.012 ng/mL (0.000-0.034)
[2024-07-04] MEDS: LABETALOL HCL INJ 100 MG/20 ML VIAL 20 MG IV PUSH (23:11)
[2024-07-04] MEDS: ACETAMINOPHEN 500 MG TABLET 1000 MG PO (23:29)
[2024-07-04] MEDS: POTASSIUM BICARBONATE 25 MEQ TABEF PO (23:29)
[2024-07-04 23:35] LABS: Magnesium 1.9 mg/dL (1.6-2.3)
[2024-07-04 23:37] VITALS: PULSE 69; RESP 25; O2SAT 95
[2024-07-04 23:40] VITALS: BP 154/79; PULSE 66; RESP 18; O2SAT 98
[2024-07-04] MEDS: PROCHLORPERAZINE EDISYLATE 10 MG/2 ML VIAL IV PUSH (23:56)
[2024-07-04] MEDS: diphenhydrAMINE HCl INJ 50 MG/ML VIAL 25 MG IV PUSH (23:56)
[2024-07-04] MEDS: KETOROLAC 15 MG/ML VIAL (*BKC) IV PUSH (23:56)
[2024-07-04] MEDS: SODIUM CHLORIDE 0.9% IV 500 ML 999 ML IV CONT (23:57)
[2024-07-05] VITALS (15 sets, daily range): BP systolic 168–188; BP diastolic 74–151; PULSE 67–77; RESP 14–28; O2SAT 93–98
[2024-07-05] MEDS: dexAMETHasone 2 MG TABLET 10 MG PO (02:18)
== END 2024-07-05 02:30 | disposition home or self-care (01) ==
PROVIDERS: Physician Assistant; Emergency Provider Student in an Organized Health Care Education/Training Program; PCP Nurse Practitioner
DX: I10 Essential (primary) hypertension (principal); E11.65 Type 2 diabetes mellitus with hyperglycemia; E87.6 Hypokalemia; R51.9 Headache, unspecified; I34.1 Nonrheumatic mitral (valve) prolapse; E11.42 Type 2 diabetes mellitus with diabetic polyneuropathy; E78.2 Mixed hyperlipidemia; G93.32 Myalgic encephalomyelitis/chronic fatigue syndrome; M79.7 Fibromyalgia; M19.90 Unspecified osteoarthritis, unspecified site; K58.9 Irritable bowel syndrome, unspecified; Z98.49 Cataract extraction status, unspecified eye; Z87.442 Personal history of urinary calculi; Z79.84 Long term (current) use of oral hypoglycemic drugs; Z79.899 Other long term (current) drug therapy
CPT/HCPCS: 36415; 70450; 71046; 80053; 83735; 83880; 84484; 85025; 96361; 96374; 96375; 99284; A9270; J0780; J1200; J1885; J7040; J8540

== ENCOUNTER 2024-07-11 13:09 | Outpatient (CLI) | payer MEDICARE, SELFPAY ==
[2024-07-11 14:38] LABS: Influenza A QL RT-PCR Negative (Negative); Influenza B QL RT-PCR Negative (Negative); RSV RNA, RT-PCR Negative (Negative); SARS-CoV-2 RNA PCR Negative (Negative)
[2024-07-11 14:47] LABS: Strep Group A RT-PCR NOT DETECTED (Negative)
--- OUTSIDE RECORDS SUMMARY | 2024-07-11 15:36 | XMS_ITS | Clinical Summary ---
Author Organization [facility] Address [address] [address] Care Team Providers Care Hr Coordinator Name Role Phone Unavailable Primary Care Provider Unavailabl e Source Comments [facility],non-owned Affiliates and Associated Physician Practices is amultiple site organization consisting of ambulatory clinics and hospital sitesin [place], [place], [place] and [place]. This disclosure is being madepursuant to the Care Everywhere program and may not contain all information available regarding this patient. Last updated 18.[facility] Social History Tobacco Use Types Packs/Day Years [...] on patient[place] [address]
--- OUTSIDE RECORDS SUMMARY | 2024-07-11 15:36 | XMS_ITS | Clinical Summary ---
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
--- OUTSIDE RECORDS SUMMARY | 2024-07-11 15:36 | XMS_ITS | Referral Summary ---
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
--- OUTSIDE RECORDS SUMMARY | 2024-07-11 15:36 | XMS_ITS | Referral Summary ---
Author Organization [facility] Address [address] [place] [address] Care Team Providers Care Key Worker Name Role Phone Unavailable Primary Care Provider Unavailabl e Source Comments [facility],non-owned Affiliates and Associated Physician Practices is amultiple site organization consisting of ambulatory clinics and hospital sitesin [place], [place] and [place]. This disclosure is being madepursuant to the Care Everywhere program and may not contain all information available regarding this patient. Last updated 18.[facility] [place] [facility] Social History Tobacco Use Types Packs/Day Years Used Date Smoking Tobacco: Never Assessed Sex and Gender Information Value Date Recorded Sex Assigned at Not on file Gender Identity Not on file Sexual Orientation Not on file Plan [place] [id number]
--- OUTSIDE RECORDS SUMMARY | 2024-07-11 15:36 | XMS_ITS | Encounter Summary ---
Author Organization [facility] Address [address] [place] [address] Care Team Providers Care Flamer After Lasting Name Role Phone Unavailable Primary Care Provider Unavailabl e Encounter Details Date Type Department Care Team (Late st Contact Info) Description 11/28/2022 Lab Requisition [facility] - DermPath Lab [address] [place] [phone] Brittany Sandoval PA-C [address] [place] [phone] Neoplasm of uncertain behavior of skin [...] AM CDT) Case Report Dermatopathology Report Case: [id number] Authorizing Provider: Brittany Sandoval PA-C Collected: 11/28/2022 12:00 AM Ordering Location: [facility] DermPath Lab Received: 12/02/2022 12:58 [...] cheek: ACTINIC KERATOSIS, ERODED (L57.0) 10:[address] [facility] DERMATOPATHOLOGY LABORATORY Clinical History A-C: Superficial Basal Cell Carcinoma 10:[address] [facility] DERMATOPATHOLOGY LABORATORY Gross Description Specimen A: Received is one formalin filled container labeled with the patient's name and designated left posterior shoulder. The specimen consists of a shave biopsy measuring 20x01c6 and 20x9x1 mm. Jar 0. Specimen B: [...] measuring 7x6x1 mm. Jar 0. 10:[address] [facility] DERMATOPATHOLOGY LABORATORY Microscopic Description Specimen A. SKIN, [...] keratinocytes in a disorderly arrangement. 10:[address] [facility] DERMATOPATHOLOGY LABORATORY Disclaimer An external and internal positive and negative controls are appropriate for the histochemical, immunohistochemical and immunofluorescence stain(s) in this case (if any), except where stated explicitly. The performance characteristics of the stain(s) cited in this report were developed and its performance characteristic determined by the Dermatopathology Laboratory at [facility], directed by Dr. Clotilde Duque. These tests need not be, and therefore are not, approved by the [place] Food and Drug Administration. The tests are used for clinical purposes. Billing Codes Specimen Charges Stain Charges 02383 37451 69251 1 1 1 3 10:23 AM CDT [...] LAB - PATHOLOGY/CYTO LOGY ORDERABLES DERMATOPATHOLOGY LABORATORY [facility] - Department of Dermatology [facility] Medicine [address] [place] [address] [phone] documented in this encounter Visit Diagnoses Diagnosis Neoplasm of uncertain behavior of skin documented in this encounter
--- OUTSIDE RECORDS SUMMARY | 2024-07-11 15:36 | XMS_ITS | Patient Health Summary ---
Author Organization [facility] Address [address] [place] [address] Care Team Providers Care Business Solutions Director Name Role Phone Unavailable Primary Care Provider Unavailabl e Note from [facility],non-owned Affiliates and Associated Physician Practices is amultiple site organization consisting of ambulatory clinics and hospital sitesin [place], [place], [place] and [place]. This disclosure is being madepursuant to the Care Everywhere program and may not contain all information available regarding this patient. Last updated 18.[facility] Social History Tobacco Use Types Packs/Day Years Used Date Smoking Tobacco: Never Assessed Sex and Gender Information Value Date Recorded Sex Assigned at Not on file Gender Identity Not on file Sexual Orientation Not on file Procedures * DERMATOPATHOLOGY(Performed 11/28/2022) Performed for Neoplasm of uncertain behavior of skin [ICD-10-CM] Results * DERMATOPATHOLOGY (11/28/2022 12:00 AM CDT) Case Report Dermatopathology Report Case: [id number] Authorizing Provider: Brittany Sandoval PA-C Collected: 11/28/2022 12:00 AM Ordering Location: [facility] DermPath Lab Received: 12/02/2022 12:58 PM Pathologist: [...] A-C: Superficial Basal Cell Carcinoma 10:23 AM [facility] DERMATOPATHOLOGY LABORATORY Gross Description Specimen A: Received is one formalin filled container labeled with the patient's name and designated left posterior shoulder. The specimen consists of a shave biopsy measuring [id number] and 20x9x1 mm. Jar 0. Specimen B: [...] measuring 7x6x1 mm. Jar 0. 10:23 AM [facility] DERMATOPATHOLOGY LABORATORY Microscopic Description Specimen A. [...] keratinocytes in a disorderly arrangement. 10:23 AM [facility] DERMATOPATHOLOGY LABORATORY Disclaimer An external and internal positive and negative controls are appropriate for the histochemical, immunohistochemical and immunofluorescence stain(s) in this case (if any), except where stated explicitly. The performance characteristics of the stain(s) cited in this report were developed and its performance characteristic determined by the Dermatopathology Laboratory at [facility], directed by Dr. Clotilde Duque. These tests need not be, and therefore are not, approved by the [place] Food and Drug Administration. The tests are used for clinical purposes. Billing Codes Specimen Charges Stain Charges 06417 [id number] [id number] 1 1 1 10:23 AM [facility] DERMATOPATHOLOGY LABORATORY Embedded Images 10:23 AM CDT DERMATOPATHOLOGY LABORATORY Pathology/Cytology TISSUE SPECIMEN FROM SKIN / Unknown 11/28/2022 12/02/2022 12:58 PM CDT Miscellaneous samples (specimen) TISSUE SPECIMEN FROM SKIN / Unknown 11/28/2022 12/02/2022 12:58 PM CDT Miscellaneous samples (specimen) TISSUE SPECIMEN FROM SKIN / Unknown 11/28/2022 12/02/2022 12:58 PM CDT Brittany Sandoval PA-C LAB - PATHOLOGY/CYTO LOGY ORDERABLES DERMATOPATHOLOGY LABORATORY [facility] - Department of Dermatology [facility] Specialized Medicine [address] [place] [address], [address] [phone]
== END 2024-07-11 13:10 | disposition home or self-care (01) ==
PROVIDERS: PCP Nurse Practitioner; Visit Provider Nurse Practitioner
DX: J02.9 Acute pharyngitis, unspecified (principal); R50.9 Fever, unspecified
CPT/HCPCS: 87637; 87651

== ENCOUNTER 2024-12-21 09:08 | Outpatient (CLI) | payer MEDICARE, SELFPAY ==
--- NOTE | ~2024-12-21 | DEXA_ITS ---
Bone Density Report Name: ANEL LEA Age: 74 Sex: Female Ethnicity: White Date of : 1950 Indication: postmenopausal; screening for osteoporosis; height loss; cancer; Referring Provider: MARCUS SALDANA Study: Bone densitometry was performed. Exam Date: December 21, 2024 Accession number: [id number] Bone Density: Region BMD T-score Z-score Classification AP Spine(L1-L4) 1.188 1.3 3.7 Normal Femoral Neck (Left) 0.939 0.8 3.0 Normal Total Hip (Left) 1.100 1.3 3.1 Normal Femoral Neck (Right) 0.928 0.7 2.9 Normal Total Hip (Right) 0.998 0.5 2.3 Normal Total Hip Mean 1.049 0.9 2.7 Normal World Health Organization criteria for BMD impression classify patients as: Normal (T-score at or above -1.0), Osteopenia (T-score between -1.0 and -2.5), or Osteoporosis (T-score at or below -2.5). 10-year Fracture Risk: FRAX not reported because: All T-scores for Spine Total, Hip Total, Femoral Neck at or above -1.0 Clinical Information Provided by Patient: Has used the following medications: Vitamin D Has the following medical conditions: Cancer Patient maximum height was 62.5 Menopause Age: 41 No regular weight bearing exercise Drinks caffeinated beverages Onset of menses at age 11 Number of children 3 Impression: The patient has normal bone mass. Discussion: LOW RISK OF FRACTURE; BONE DENSITY IS WELL ABOVE THE MINIMUM DESIRABLE LEVEL AND ABOVE AVERAGE FOR AGE AND SEX AT ALL SKELETAL SITES TESTED. This person's bone density is above expected limits for age and sex. This is rarely clinically significant, but should be pursued if there are significant musculoskeletal complaints. The patient should follow a healthful lifestyle (good nutrition with adequate calcium and vitamin D, and appropriate weight-bearing exercise). Follow-Up: Consider repeating this study in 5 years or sooner if there is some new clinical indication. Reported by: ZAKIYA on 12/21/2024 9:46:00 AM. Reviewed, dictated and finalized at location A.
--- OUTSIDE RECORDS SUMMARY | 2024-12-21 09:27 | XMS_ITS | Encounter Summary ---
Author Organization [facility] Address [address] [place] [address] Care Team Providers Care Plant Ecologist Name Role Phone Unavailable Primary Care Provider Unavailabl e Encounter Details Date Type Department Care Team (Late st Contact Info) Description 11/28/2022 Lab Requisition [facility] - DermPath Lab [address] [facility] [place] [phone] Brittany Sandoval PA-C [address] [place] [phone] Neoplasm of uncertain behavior of skin Social History Tobacco Use Types Packs/Day Years Used Date Smoking Tobacco: Never Assessed Comments Unknown Sex and Gender Information Value Date Recorded Sex Assigned at Not on file Legal Sex Female 4:15 PM CDT Gender Identity Not on file Sexual Orientation [...] AM CDT) Case Report Dermatopathology Report Case: [id number] Authorizing Provider: Brittany Sandoval PA-C Collected: 11/28/2022 12:00 AM Ordering Location: [facility] DermPath Lab Received: 12/02/2022 12:58 PM Pathologist: [...] cheek: ACTINIC KERATOSIS, ERODED (L57.0) 10:23 AM [facility] DERMAT[facility]OLOGY LABORATORY at 1023 CDT Clinical History A-C: Superficial Basal Cell Carcinoma 10:23 AM [facility]ERMATOP[facility]Y LABORATORY Gross Description Specimen A: Received is one formalin filled container labeled with the patient's name and designated left posterior shoulder. The specimen consists of a shave biopsy measuring [id number] and 20x9x1 mm. Jar 0. Specimen B: [...] measuring 7x6x1 mm. Jar 0. 10:23 AM [facility] DERMATOPATHOLOGY LABORATORY Microscopic Description Specimen A. SKIN, [...] keratinocytes in a disorderly arrangement. 10:23 AM [facility] DERMATOPATHOLOGY LABORATORY Disclaimer An external and internal positive and negative controls are appropriate for the histochemical, immunohistochemical and immunofluorescence stain(s) in this case (if any), except where stated explicitly. The performance characteristics of the stain(s) cited in this report were developed and its performance characteristic determined by the Dermatopathology Laboratory at [facility], directed by Dr. Clotilde Duque. These tests need not be, and therefore are not, approved by the [place] Food and Drug Administration. The tests are used for clinical purposes. Billing Codes Specimen Charges Stain Charges 97191 [id number] [id number] 1 1 1 3 10:23 AM CDT DERMATOPATHOLOGY LABORATORY Embedded Images 10:23 AM CDT DERMATOPATHOLOGY LABORATORY Pathology/Cytology TISSUE SPECIMEN FROM SKIN / Unknown 11/28/2022 12/02/2022 12:58 PM CDT Miscellaneous samples (specimen) TISSUE SPECIMEN FROM SKIN / Unknown 11/28/2022 12/02/2022 12:58 PM CDT Miscellaneous samples (specimen) TISSUE SPECIMEN FROM SKIN / Unknown 11/28/2022 12/02/2022 12:58 PM CDT Brittany Sandoval PA-C LAB - PATHOLOGY/CYTOLOGY NIXONE NANDO Final Result DERMATOPATHOLOGY LABORATORY [facility] - Department of Dermatology [facility] Specialized Medicine [address] [place] [address], [address] Floor [address] [phone] documented in this encounter Visit Diagnoses Diagnosis Neoplasm of uncertain behavior of skin documented in this encounter
--- OUTSIDE RECORDS SUMMARY | 2024-12-21 09:27 | XMS_ITS | Clinical Summary ---
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
--- OUTSIDE RECORDS SUMMARY | 2024-12-21 09:27 | XMS_ITS | Referral Summary ---
Author Organization [facility] [place] [address] Address [address] [place] [address] Care Team Providers Care Digital Archivist Name Role Phone Ashley Henson MD Primary Care Provider [phone] Social History Tobacco Use Types Packs/Day Years Used Date Smoking Tobacco: Never Assessed Personal Safety Answer Date Recorded Getting School Help Needed Not on file 08/07 Comments Unknown Sex and Gender Information Value Date Recorded Sex Assigned at Not on file Legal Sex Female 3:44 AM MED DIR Gender Identity Not on file Sexual Orientation Not on file Plan of Treatment Not on file Insurance [facility] [place] [facility] MEDICARE ADVANTAGE [id number] [place] Care Teams Digital Archivist Relationship Specialty Start Date End Date Ashley Henson MD [address] [place] [address] PCP - General Family Medicine 06/22/20
--- OUTSIDE RECORDS SUMMARY | 2024-12-21 09:27 | XMS_ITS | Clinical Summary ---
Author Organization [facility] Address [address] [place] [address] Care Team Providers Care Vocational Trainer Name Role Phone Unavailable Primary Care Provider Unavailabl e Source Comments [facility],non-owned Affiliates and Associated Physician Practices is amultiple site organization consisting of ambulatory clinics and hospital sitesin [place], [place], [place] and [place]. This disclosure is being madepursuant to the Care Everywhere program and may not contain all information available regarding this patient. Last updated 18.[facility] Social History Tobacco Use Types Packs/Day Years Used Date Smoking Tobacco: Never Assessed Comments Unknown Sex and Gender Information Value Date Recorded Sex Assigned at Not on file Legal Sex Female 4:15 PM CDT Gender Identity Not on file Sexual Orientation Not on file Plan of Treatment Health Maintenance Due Date Last Done Comments BONE DENSITY TESTING 1950 HEPATITIS C SCREENING 09/03/1966 DTAP/TDAP/TD VACCINES (1 - Tdap) 09/08/1967 PNEUMOCOCCAL VACCINE 50+ (1 of 1 - PCV) 1998 ZOSTER VACCINE (1 of 2) 1998 Respiratory Syncytial Virus (RSV) Vaccine Pt: or over 60 yrs (1 - 1-dose 75+ series) 09/08/2023 COVID-19 VACCINE ( - 2023-2 5 season) 2024 DEPRESSION SCREENING 05/25/2024 MEDICARE AWV CALENDAR YEAR 2024 INFLUENZA VACCINE (#1) 2025 HEPATITIS B VACCINE Aged Out No longe r eligible based on patient's age to complete this topic HIB VACCINE Aged Out No longer eligi ble based on patient's age to complete this topic HPV VACCINE Aged Out No longer eligi ble based on patient's age to complete this topic MENINGOCOCCAL (Group B) VACC INE SHARED DECISION-MAKING Aged Out No longer eligibl e based on patient's age to complete this topic MENINGOCOCCAL GROUPS A/C/Y/W VACCINE Aged Out No longer eligible b ased on patient's age to complete this topic [place] [address] [employer] MEDICARE ADV
== END 2024-12-21 09:09 | disposition home or self-care (01) ==
LOC: ANHIMG 09:12
PROVIDERS: PCP Family Medicine; Visit Provider Nurse Practitioner
DX: Z78.0 Asymptomatic menopausal state (principal); Z87.81 Personal history of (healed) traumatic fracture
CPT/HCPCS: 77080